=== PATIENT | female | born 1965 | race Caucasian/White ===

== ENCOUNTER 2022-04-24 18:31 | Inpatient (IN) | payer OTHER ==
[2022-04-24] MEDS ORDERED: SODIUM CHLORIDE 0.9% 1,000 ML IV STA ×3 (18:48→19:53)
[2022-04-24] MEDS ORDERED: methylPREDNISolone SOD SUCCI 125 MG/2 ML VIAL IV STA (18:48)
[2022-04-24] MEDS ORDERED: IPRATROPIUM-ALBUTEROL 3 ML NEB INHALATION STA ×2 (18:48→18:49)
[2022-04-24] MEDS ORDERED: LORazepam 2 MG/ML INJ IV STA (19:00)
[2022-04-24 19:12] LABS: Basophils # (A) 0.1 k/uL (0-0.2); Basophils % (A) 1 %; Eosinophils # (A) 0.1 k/uL (0-0.7); Eosinophils % (A) 1 %; HCT 45.4 % (34.0-46.0); HGB 15.3 gm/dL (11.4-16.0); Lymphocytes # (A) 1.4 k/uL (1.0-4.8); Lymphocytes % (A) 10 %; MCH 31.5 pg (25.0-35.0); MCHC 33.7 g/dL (31.0-37.0); MCV 93.5 fL (80.0-100.0); Monocytes # (A) 0.6 k/uL (0-1.0); Monocytes % (A) 4 %; Neutrophils # (A) 11.4 k/uL (1.3-7.7); Neutrophils % (A) 84 %; Platelet Count 299 k/uL (150-450); RBC 4.85 m/uL (3.80-5.40); RDW 12.8 % (11.5-15.5); WBC 13.6 k/uL (3.8-10.6)
[2022-04-24 19:16] LABS: VBG PH 7.25 (7.31-7.41)
[2022-04-24] MEDS: MAGNESIUM SULFATE-D5W PMX 1 GM in DEXTROSE/WATER 1 100ML.BAG IVPB SCH ×2 (19:26→20:53)
[2022-04-24 19:30] LABS: ALT 22 U/L (4-34); AST 34 U/L (14-36); African American GFR (CKD) >90 (>60 ml/min/1.73 sqM); Albumin 4.9 g/dL (3.5-5.0); Alkaline Phosphatase 94 U/L (38-126); Anion Gap 6 mmol/L; Blood Urea Nitrogen 11 mg/dL (7-17); Calcium 9.8 mg/dL (8.4-10.2); Carbon Dioxide 26 mmol/L (22-30); Chloride 102 mmol/L (98-107); Glucose 150 mg/dL (74-99); Magnesium 1.9 mg/dL (1.6-2.3); Non-African American GFR(CKD) >90 (>60 ml/min/1.73 sqM); Potassium 4.5 mmol/L (3.5-5.1); Sodium 134 mmol/L (137-145); Total Bilirubin 0.4 mg/dL (0.2-1.3); Total Protein 8.2 g/dL (6.3-8.2)
[2022-04-24 19:39] LABS: INR 0.9 (<1.2); Partial Thromboplastin Time 23.5 sec (22.0-30.0); Prothrombin Time 9.5 sec (9.0-12.0)
--- NOTE | 2022-04-24 19:52 | XR ---
EXAMINATION TYPE: XR chest 1V portable DATE OF EXAM: 04/24/2022 COMPARISON: 11/12/2014 HISTORY: Chest pain TECHNIQUE: FINDINGS: There is no heart failure nor confluent pneumonic infiltrate. There is pulmonary hyperinfla tion and flattening of the diaphragm. There are chest leads. Bony thorax is intact. IMPRESSION: There is COPD. No active cardiopulmonary disease. No change.
[2022-04-24] MEDS ORDERED: IPRATROPIUM-ALBUTEROL 3 ML NEB INHALATION PRN (19:56)
[2022-04-24] MEDS ORDERED: NALOXONE 0.4 MG/ML 1 ML VIAL IV PRN (20:02)
--- NOTE | 2022-04-24 20:03 | ED ---
General Adult HPI - General Chief complaint: Shortness of Breath Stated complaint: sob;chest pain Time Seen by Provider: 04/24/22 18:40 Source: patient, family, RN notes reviewed, old records reviewed Mode of arrival: wheelchair Limitations: no limitations - History of Present Illness Initial comments: Patient is a 57-year-old female who presents here with Department complaining of 3 days of worsening dyspnea. Has a history of COPD not on home oxygen. Does use inhalers at home. He is a tobacco user. Presents over concern for worsening shortness breath over the last 3 days. Today she was more weak as well. She presented to triage, and was found to be hypoxic and at this low 80%'s. She was rushed back to the trauma bay's for evaluation. Endorses chest tightness sensation, and is similar to a bad COPD exacerbation she had in the past. Denies any nausea, vomiting. Denies any known sick contacts. Endorses a nonproductive cough. Endorses the feeling that her tongue is dry. Denies fevers, sick contacts otherwise. Was vaccinated for COVID-19 but did not receive the most recent booster. Presents for further evaluation at this time for concern for her respiratory distress. Cough is relatively nonproductive. Patient also has a complaint of a one time episode of possible blood in her stool earlier today. He is not on blood thinners. Denies any lightheadedness. Is uncertain if this contributed to her current symptoms. No history of GI bleed. Never received a colonoscopy before. States it is bright red blood around brown stool. Does have a history of hemorrhoids. No recurrent episodes. - Related Data Home Medications Medication Instructions Recorded Confirmed No Known Home Medications 04/24/22 04/24/22 Allergies Allergy/AdvReac Type Severity Reaction Status Date / Time No Known Allergies Allergy Verified 04/24/22 19:56 Review of Systems ROS Statement: Those systems with pertinent positive or pertinent negative responses have been documented in the HPI. Review of Systems: CONST: Denies fever EYES: Denies blurry vision ENT: Denies nasal congestion C/V: Denies Chest pain RESP: Endorses shortness of breath GI: Denies abdominal pain : Denies dysuria SKIN: Denies rash. MSK: Denies joint pain. NEURO: Denies headache ROS Other: All systems not noted in ROS Statement are negative. Past Medical History Past Medical History: No Reported History Additional Past Medical History / Comment(s): STRESS INCONT OF URINE, MIGRAINES, History of Any Multi-Drug Resistant Organisms: None Reported Past Surgical History: No Surgical Hx Reported Additional Past Surgical History / Comment(s): ECTOPIC ,KIDNEY STONES REMOVED. Past Anesthesia/Blood Transfusion Reactions: No Reported Reaction Past Psychological History: Anxiety, Bipolar, Depression Past Alcohol Use History: Occasional Past Drug Use History: Marijuana - Past Family History Mother Family Medical History: Cancer Additional Family Medical History / Comment(s): LUNG CANCER Father Additional Family Medical History / Comment(s): AGE 78 [employer] [facility], General Exam - General Exam Comments Initial Comments: General: Appears in significant respiratory distress. HEAD: Normal with no signs of head trauma. EYES: PERRLA, EOMI, conjunctiva normal, no discharge. ENT: Hearing grossly intact, normal oropharynx. RESPIRATORY: Reduced breath sounds bilaterally with reduced amount of wheezing. Concern for acute COPD exacerbation. Increased work of breathing. Hypoxic on room air. C/V: Tachycardic with a regular rhythm. S1 and S2 auscultated. Peripheral pulses are 2+ and intact throughout. ABD: Abd is soft, nontender, nondistended.Rectal exam performed in the presence of a staff member. No gross blood. Nonbleeding hemorrhoid present. Light br own stool present. Good rectal tone. EXT: Normal range of motion, no obvious deformity SKIN: No rashes or lesions observed on exposed skin. NEURO: Alert and oriented x 4. Cranial nerves II-XII intact. No focal sensory or strength deficits. Limitations: no limitations Course Vital Signs 04/24/22 04/24/22 04/24/22 18:33 19:05 19:09 Temperature 98.8 F Pulse Rate 122 H 113 H Respiratory 19 26 H 26 H Rate Blood Pressure 185/103 O2 Sat by Pulse 81 L 99 Oximetry Fraction of Inspired Oxygen (FIO2) 04/24/22 04/24/22 04/24/22 19:15 19:18 19:26 Temperature Pulse Rate 122 H 115 H Respiratory 30 H 30 H Rate Blood Pressure 182/91 164/89 O2 Sat by Pulse 99 115 H Oximetry Fraction of 60 Inspired Oxygen (FIO2) 04/24/22 04/24/22 04/24/22 19:28 19:43 19:51 Temperature Pulse Rate 125 H Respiratory Rate Blood Pressure O2 Sat by Pulse Oximetry Fraction of 50 50 Inspired Oxygen (FIO2) 04/24/22 04/24/22 20:03 20:38 Temperature Pulse Rate 123 H 122 H Respiratory 25 H Rate Blood Pressure 171/96 O2 Sat by Pulse 99 Oximetry Fraction of Inspired Oxygen (FIO2) Medical Decision Making - Medical Decision Making Was pt. sent in by a medical professional or institution? @ -No Did you speak to anyone other than the patient for history? @ -Yes. Patient's who is able to detail worsening respiratory distress over the last 3 days. Did you review nursing and triage notes? @ -Yes. I agree. Were old charts reviewed? @ -Yes. Old EKG, prior admission Differential Diagnosis? @ -Differential Dyspnea: Coronary syndrome, arrhythmia, tamponade, asthma, COPD, pulmonary embolism, pneumonia, pneumothorax, pulmonary effusion, anaphylaxis, diabetic ketoacidosis, flailed chest, pulmonary contusion, diaphragmatic rupture, anemia, neuromuscular, this is not meant to be an all-inclusive list. EKG interpreted by me (3pts min.)? @ -Yes. See note. X-rays interpreted by me (1pt min.)? @ -Yes. Chest x-ray shows no acute cardiopulmonary process, infiltrate. CT interpreted by me (1pt min.)? @ -none U/S interpreted by me (1pt. min.)? @ -none What testing was considered but not performed? (CT, X-rays, U/S, labs)? Why? @None What meds were considered but not given? Why? @ -none Did you discuss the management of the patient with other professionals? @ -Dr. Simon, the admitting physician who was in agreement with the plan. We'll trend the troponin and follow up on this, as is likely elevated secondary to her COPD exacerbation and underlying infection. Did you reconcile home meds? @ -none Was smoking cessation discussed for >3mins.? @ -Yes Was critical care preformed (if so, how long)? @ -Yes. 35 minutes. See note. Were there social determinants of health that impacted care today? How? (Homelessness, low income, unemployed, alcoholism, drug addiction, transportation, low edu. Level, literacy, decrease access to med. care, prison, rehab)? @ -None Was there de-escalation of care discussed even if they declined? (Discuss DNR or withdrawal of care, Hospice)? @ -No What co-morbidities impacted this encounter? (DM, HTN, Smoking, COPD, CAD, Cancer, CVA, Hep., AIDS, mental health diagnosis, sleep apnea, morbid obesity)? @ -Yes, smoking, COPD Was patient admitted / discharged? @ -Based on the patient's presentation and physical exam, she presents hypoxic, tachycardic likely secondary to COPD exacerbation. She is tight breath sounds bilaterally. She was immediately placed in trauma bay 2 where I evaluated her. She was placed on BiPAP and given a dose of Ativan for anxiety. We will obtain cardiac pulmonary laboratory studies. She'll receive IV steroids as well as breathing treatments for her COPD exacerbation. We will also evaluate her for infection at this time. She was in agreement this plan. She'll be given a 1 L fluid bolus as she is dehydrated and likely secondary to insensible losses. She was in agreement this plan. Chest x-ray revealed no acute infiltrate. EKG showed no signs of acute ischemia. Laboratory studies were remarkable for leukocytosis of 13. Patient's venous blood gas does show that the patient has some CO2 retention likely secondary to the acute COPD exacerbation. Troponin is elevated to 0.115 which is likely related to her hypoxia as well as her dehydration at this time. We'll continue to trend. She was given an aspirin. Occult blood was obtained and was negative. Varus labs returned positive for RSV and COVID-19. She is influenza-negative. After the patient. At this time, her work of breathing is improved as is her heart rate. Patient is saturating well. We're titrating down the approximation requirements on the BiPAP machine. She states she still feels somewhat anxious on BiPAP but is doing well. Her symptoms are improving. We discussed her workup. I believe it is best admitted to the hospital at this time. She was in agreement this plan. Pulmonology was consulted. We will continue COPD treatment with IV steroids, DuoNeb's initially. However due to the COVID-19 positive diagnosis I did order her MDIs as well. We'll continue BiPAP at this time. She will be admitted to stepdown. I spoke with the admitting physician, cherelle Simon who accepted the patient. He was in agreement with trend in the troponin for now, as it is likely rate elevated secondary to her infectious process as well as hypoxia at home and dehydration.. DVT prophylaxis subcutaneous heparin was star drew. Undiagnosed new problem with uncertain prognosis? @ -Acute COPD exacerbation, acute RSV infection, acute COVID-19 infection. Acute elevated troponin. Drug Therapy requiring intensive monitoring for toxicity (Heparin, Nitro, Insulin, Cardizem)? @ -none Were any procedures done? @ -none Diagnosis/symptom? @ -Acute COPD exacerbation, acute RSV infection, acute COVID-19 infection. Acute elevated troponin. Dehydration Acute, or Chronic, or Acute on Chronic? @ -Acute Uncomplicated (without systemic symptoms) or Complicated (systemic symptoms)? @ -Complicated Side effects of treatment? @ -none Exacerbation, Progression, or Severe Exacerbation] @ -no Poses a threat to life or bodily function? @ -Yes if worsening respiratory distress, patient risk for significant morbidity and mortality. - Lab Data Result diagrams: 04/24/22 18:53 04/24/22 18:53 Lab Results 04/24/22 04/24/22 04/24/22 Range/Units 18:53 18:53 18:53 WBC 13.6 H (3.8-10.6) k/uL RBC 4.85 (3.80-5.40) m/uL Hgb 15.3 (11.4-16.0) gm/dL Hct 45.4 (34.0-46.0) % MCV 93.5 (80.0-100.0) fL MCH 31.5 (25.0-35.0) pg MCHC 33.7 (31.0-37.0) g/dL RDW 12.8 (11.5-15.5) % Plt Count 299 (150-450) k/uL MPV 8.0 Neutrophils % 84 % Lymphocytes % 10 % Monocytes % 4 % Eosinophils % 1 % Basophils % 1 % Neutrophils # 11.4 H (1.3-7.7) k/uL Lymphocytes # 1.4 (1.0-4.8) k/uL Monocytes # 0.6 (0-1.0) k/uL Eosinophils # 0.1 (0-0.7) k/uL Basophils # 0.1 (0-0.2) k/uL PT 9.5 (9.0-12.0) sec INR 0.9 (<1.2) APTT 23.5 (22.0-30.0) sec VBG pH (7.31-7.41) VBG pCO2 (37-51) mmHg VBG HCO3 (24-28) mmol/L Sodium 134 L (137-145) mmol/L Potassium 4.5 (3.5-5.1) mmol/L Chloride 102 (98-107) mmol/L Carbon Dioxide 26 (22-30) mmol/L Anion Gap 6 mmol/L BUN 11 (7-17) mg/dL Creatinine 0.64 (0.52-1.04) mg/dL Est GFR (CKD-EPI)AfAm >90 (>60 ml/min/1.73 sqM) Est GFR (CKD-EPI)NonAf >90 (>60 ml/min/1.73 sqM) Glucose 150 H (74-99) mg/dL Plasma Lactic Acid [place] (0.7-2.0) mmol/L Calcium 9.8 (8.4-10.2) mg/dL Magnesium 1.9 (1.6-2.3) mg/dL Total Bilirubin 0.4 (0.2-1.3) mg/dL AST 34 (14-36) U/L ALT 22 (4-34) U/L Alkaline Phosphatase 94 (38-126) U/L Troponin I (0.000-0.034) ng/mL NT-Pro-B Natriuret Pep pg/mL Total Protein 8.2 (6.3-8.2) g/dL Albumin 4.9 (3.5-5.0) g/dL Stool Occult Blood (Negative) Influenza Type A (PCR) (Not Detectd) Influenza Type B (PCR) (Not Detectd) RSV (PCR) (Not Detectd) SARS-CoV-2 (PCR) (Not Detectd) 04/24/22 04/24/22 04/24/22 Range/Units 18:53 18:53 18:53 WBC (3.8-10.6) k/uL RBC (3.80-5.40) m/uL Hgb (11.4-16.0) gm/dL Hct (34.0-46.0) % MCV (80.0-100.0) fL MCH (25.0-35.0) pg MCHC (31.0-37.0) g/dL RDW (11.5-15.5) % Plt Count (150-450) k/uL MPV Neutrophils % % Lymphocytes % % Monocytes % % Eosinophils % % Basophils % % Neutrophils # (1.3-7.7) k/uL Lymphocytes # (1.0-4.8) k/uL Monocytes # (0-1.0) k/uL Eosinophils # (0-0.7) k/uL Basophils # (0-0.2) k/uL PT (9.0-12.0) sec INR (<1.2) APTT (22.0-30.0) sec VBG pH (7.31-7.41) VBG pCO2 (37-51) mmHg VBG HCO3 (24-28) mmol/L Sodium (137-145) mmol/L Potassium (3.5-5.1) mmol/L Chloride (98-107) mmol/L Carbon Dioxide (22-30) mmol/L Anion Gap mmol/L BUN (7-17) mg/dL Creatinine (0.52-1.04) mg/dL Est GFR (CKD-EPI)AfAm (>60 ml/min/1.73 sqM) Est GFR (CKD-EPI)NonAf (>60 ml/min/1.73 sqM) Glucose (74-99) mg/dL Plasma Lactic Acid [place] 1.2 (0.7-2.0) mmol/L Calcium (8.4-10.2) mg/dL Magnesium (1.6-2.3) mg/dL Total Bilirubin (0.2-1.3) mg/dL AST (14-36) U/L ALT (4-34) U/L Alkaline Phosphatase (38-126) U/L Troponin I 0.115 H* (0.000-0.034) ng/mL NT-Pro-B Natriuret Pep 203 pg/mL Total Protein (6.3-8.2) g/dL Albumin (3.5-5.0) g/dL Stool Occult Blood (Negative) Influenza Type A (PCR) (Not Detectd) Influenza Type B (PCR) (Not Detectd) RSV (PCR) (Not Detectd) SARS-CoV-2 (PCR) (Not Detectd) 01/01/23 01/01/23 01/01/23 Range/Units 18:53 18:53 18:57 WBC (3.8-10.6) k/uL RBC (3.80-5.40) m/uL Hgb (11.4-16.0) gm/dL Hct (34.0-46.0) % MCV (80.0-100.0) fL MCH (25.0-35.0) pg MCHC (31.0-37.0) g/dL RDW (11.5-15.5) % Plt Count (150-450) k/uL MPV Neutrophils % % Lymphocytes % % Monocytes % % Eosinophils % % Basophils % % Neutrophils # (1.3-7.7) k/uL Lymphocytes # (1.0-4.8) k/uL Monocytes # (0-1.0) k/uL Eosinophils # (0-0.7) k/uL Basophils # (0-0.2) k/uL PT (9.0-12.0) sec INR (<1.2) APTT (22.0-30.0) sec VBG pH 7.25 L (7.31-7.41) VBG pCO2 64 H (37-51) mmHg VBG HCO3 27 (24-28) mmol/L Sodium (137-145) mmol/L Potassium (3.5-5.1) mmol/L Chloride (98-107) mmol/L Carbon Dioxide (22-30) mmol/L Anion Gap mmol/L BUN (7-17) mg/dL Creatinine (0.52-1.04) mg/dL Est GFR (CKD-EPI)AfAm (>60 ml/min/1.73 sqM) Est GFR (CKD-EPI)NonAf (>60 ml/min/1.73 sqM) Glucose (74-99) mg/dL Plasma Lactic Acid [place] (0.7-2.0) mmol/L Calcium (8.4-10.2) mg/dL Magnesium (1.6-2.3) mg/dL Total Bilirubin (0.2-1.3) mg/dL AST (14-36) U/L ALT (4-34) U/L Alkaline Phosphatase (38-126) U/L Troponin I (0.000-0.034) ng/mL NT-Pro-B Natriuret Pep pg/mL Total Protein (6.3-8.2) g/dL Albumin (3.5-5.0) g/dL Stool Occult Blood Negative (Negative) Influenza Type A (PCR) Not Detected (Not Detectd) Influenza Type B (PCR) Not Detected (Not Detectd) RSV (PCR) Detected A (Not Detectd) SARS-CoV-2 (PCR) Detected A (Not Detectd) - EKG Data -: EKG Interpreted by Me EKG Comments: 12-lead Electrocardiogram Interpretation Note EKG was reviewed and interpreted by myself. 12-lead ECG performed at 1850 is interpreted by me as revealing sinus tachycardia at a rate of 113 beats per minute. Rampart is normal. AR interval is 144 ms, QRS duration is 88 ms, QTc is 449 ms.. There were no ST or T wave abnormalities to suggest myocardial ischemia or injury. R wave progression across the precordium was satisfactory. By my interpretation this EKG is non-diagnostic for acute ischemia. Compared with EKG from October 2014, no significant change except for the tachycardia which is likely secondary to her hypoxia and dehydration. Disposition Clinical Impression: Respiratory failure with hypoxia, COPD exacerbation, Elevated troponin, Dehydration, COVID-19 virus infection, RSV infection Disposition: ADMITTED IP TO THIS HOSP Condition: Serious Time of Disposition: 20:02
[2022-04-24] MEDS ORDERED: ALBUTEROL HFA INHALER INHALATION PRN (20:14)
[2022-04-24] MEDS ORDERED: ASPIRIN 81 MG PO STA (20:51)
[2022-04-24] MEDS: methylPREDNISolone SOD SUCCI 40 MG/ML 1 ML VIAL IV SCH (20:53)
[2022-04-24] MEDS ORDERED: ASPIRIN-ACET-CAFF 250-250-65MG 1 EACH TAB PO STA (21:53)
[2022-04-24 23:01] LABS: Appearance,Urine Clear (Clear); Bilirubin,Urine Negative (Negative); Blood,Urine Negative (Negative); Color,Urine Colorless; Glucose,Urine (UA) Trace (Negative); Ketones,Urine Negative (Negative); Leukocyte Esterase,Urine Negative (Negative); Nitrite,Urine Negative (Negative); Protein,Urine Negative (Negative); Specific Gravity,Urine 1.002 (1.001-1.035); Urobilinogen,Urine <2.0 mg/dL (<2.0)
[2022-04-24] MEDS ORDERED: HEPARIN SODIUM 1,000 UN/ML (10ML VL) IV PRN (23:41)
[2022-04-25] MEDS ORDERED: HEPARIN SODIUM,PORCINE/PF 5,000 UNIT/0.5 ML SYRINGE SQ SCH
[2022-04-25 00:15] LABS: Basophils % (A) 0 %; Eosinophils # (A) 0.1 k/uL (0-0.7); Eosinophils % (A) 1 %; HCT 40.5 % (34.0-46.0); HGB 13.6 gm/dL (11.4-16.0); Lymphocytes # (A) 0.4 k/uL (1.0-4.8); Lymphocytes % (A) 4 %; MCH 31.4 pg (25.0-35.0); MCHC 33.5 g/dL (31.0-37.0); MCV 93.7 fL (80.0-100.0); Monocytes # (A) 0.1 k/uL (0-1.0); Monocytes % (A) 1 %; Neutrophils # (A) 9.3 k/uL (1.3-7.7); Neutrophils % (A) 94 %; Platelet Count 229 k/uL (150-450); RBC 4.32 m/uL (3.80-5.40); RDW 12.8 % (11.5-15.5); WBC 9.9 k/uL (3.8-10.6)
[2022-04-25] MEDS: HEPARIN SOD,PORK IN 0.45% NACL 25,000 UNIT in 0.45% NACL 1 250ML.BAG IV SCH (00:20)
[2022-04-25 00:34] LABS: INR 0.9 (<1.2); Partial Thromboplastin Time 20.8 sec (22.0-30.0); Prothrombin Time 9.5 sec (9.0-12.0)
--- NOTE | 2022-04-25 02:33 | P.HPIM ---
History of Present Illness H&P Date: 04/24/22 The patient is a 57-year-old female with a PMH of COPD and tobacco abuse who presents to the emergency room with complaints of shortness of breath and cough. The patient reports that her symptoms started roughly 2 days ago with gradually worsening shortness of breath, cough productive of white and green phlegm, palpitations, and occasional chest pressure. She reports that her symptoms are worse than her prior episodes of COPD exacerbations. Reports feeling significantly better after arrival at the emergency room and stated that she has not had any further chest discomfort. Denied experiencing fever or chills. Denied dizziness, nausea, vomiting, abdominal pain, diarrhea. Upon arrival in the emergency room, the patient was hypoxic at SpO2 81% on room air, pulse 122, BP 185/103, respiratory rate 26, and temp 98.8F. Chest x-ray was consistent with COPD with EKG showing sinus tachycardia at 113 bpm. Laboratory evaluation was remarkable for troponin of 0.115, kim virus PCR an RSV positive, glucose 150, pH on VBG 7.25, pCO2 64, WBC count 13.6, and proBNP 203. The case was discussed in detail with the ED physician. Review of systems: Pertinent positives and negatives as discussed in HPI, a complete review of systems was performed and all other systems are negative. Physical examination: General: non toxic, no distress, appears older than stated age, normal weight Derm: no unusual rashes/lesions, warm Head: atraumatic, normocephalic, symmetric Eyes: EOMI, no lid lag, anicteric sclera, pupils equal round reactive to light ENT: Nose and ears atraumatic Neck: No cervical lymphadenopathy, trachea midline, supple Mouth: no lip lesion, mucus membranes moist Cardiovascular: S1S2 reg, no murmur, positive dorsalis pedis pulse bilateral, no edema Lungs: Expiratory wheezing with diffuse coarse breath sounds, no accessory muscle use Abdominal: soft, nontender to palpation, no guarding Ext: muscle strength 5 out of 5 in all 4 extremities grossly, no gross muscle atrophy, no contractures, Neuro: CN II-XI grossly intact, no gross focal neuro deficits Psych: Alert, oriented, appropriate affect Assessment/plan Acute hypercapnic and hypoxic respiratory failure secondary to acute COPD exacerbation with COVID-19 and RSV infections -Continue with Solu-Medrol -DuoNeb around the clock and as needed -Supplemental oxygen as needed -Pulmonary consulted Non-ST elevation CT -Heparin infusion initiated -Continue aspirin, statin -Cardiology consult -Trend troponin -Cardiac monitoring DVT prophylaxis -Heparin infusion The patient is admitted with an anticipated greater than 2 midnight stay for evaluation of COPD CODE STATUS: Full Code Discussed with: Patient, Anticipated discharge date: 2-[address]: Home Past Medical History Past Medical History: No Reported History Additional Past Medical History / Comment(s): STRESS INCONT OF URINE, MIGRAINES, History of Any Multi-Drug Resistant Organisms: None Reported Past Surgical History: No Surgical Hx Reported Additional Past Surgical History / Comment(s): ECTOPIC ,KIDNEY STONES REMOVED. Past Anesthesia/Blood Transfusion Reactions: No Reported Reaction Past Psychological History: Anxiety, Bipolar, Depression Past Alcohol Use History: Occasional Past Drug Use History: Marijuana - Past Family History Mother Family Medical History: Cancer Additional Family Medical History / Comment(s): LUNG CANCER Father Additional Family Medical History / Comment(s): AGE 78 [employer] [facility], Medications and Allergies Home Medications Medication Instructions Recorded Confirmed Type No Known Home Medications 04/24/22 04/24/22 History Allergies Allergy/AdvReac Type Severity Reaction Status Date / Time No Known Allergies Allergy Verified 04/24/22 19:56 Physical Exam Vitals: Vital Signs Temp Pulse Resp BP Pulse Ox FiO2 04/24/22 22:42 113 H 24 128/73 96 04/24/22 21:30 105 H 23 136/84 98 04/24/22 20:50 129 H 04/24/22 20:38 122 H 25 H 171/96 99 04/24/22 20:03 123 H 04/24/22 19:51 125 H 04/24/22 19:43 50 04/24/22 19:28 50 04/24/22 19:26 115 H 30 H 164/89 115 H 04/24/22 19:18 60 04/24/22 19:15 122 H 30 H 182/91 99 04/24/22 19:09 26 H 04/24/22 19:05 113 H 26 H 99 04/24/22 18:33 98.8 F 122 H 19 185/103 81 L Intake and Output 04/24/22 04/24/22 04/25/22 14:59 22:59 06:59 Other: Weight 58.967 kg Results CBC & Chem 7: 04/24/22 23:59 04/24/22 18:53 Labs: Abnormal Lab Results - Last 24 Hours (Table) 04/24/22 04/24/22 04/24/22 Range/Units 18:53 18:53 18:53 WBC 13.6 H (3.8-10.6) k/uL Neutrophils # 11.4 H (1.3-7.7) k/uL VBG pH (7.31-7.41) VBG pCO2 (37-51) mmHg Sodium 134 L (137-145) mmol/L Glucose 150 H (74-99) mg/dL Troponin I 0.115 H* (0.000-0.034) ng/mL Urine Glucose (UA) (Negative) RSV (PCR) (Not Detectd) SARS-CoV-2 (PCR) (Not Detectd) 04/24/22 04/24/22 04/24/22 Range/Units 18:53 18:53 21:33 WBC (3.8-10.6) k/uL Neutrophils # (1.3-7.7) k/uL VBG pH 7.25 L (7.31-7.41) VBG pCO2 64 H (37-51) mmHg Sodium (137-145) mmol/L Glucose (74-99) mg/dL Troponin I 0.187 H* (0.000-0.034) ng/mL Urine Glucose (UA) (Negative) RSV (PCR) Detected A (Not Detectd) SARS-CoV-2 (PCR) Detected A (Not Detectd) 04/24/22 Range/Units 22:41 WBC (3.8-10.6) k/uL Neutrophils # (1.3-7.7) k/uL VBG pH (7.31-7.41) VBG pCO2 (37-51) mmHg Sodium (137-145) mmol/L Glucose (74-99) mg/dL Troponin I (0.000-0.034) ng/mL Urine Glucose (UA) Trace H (Negative) RSV (PCR) (Not Detectd) SARS-CoV-2 (PCR) (Not Detectd)
[2022-04-25] MEDS ORDERED: IPRATROPIUM-ALBUTEROL 3 ML NEB INHALATION PRN (02:35)
[2022-04-25] MEDS: ATORVASTATIN 80 MG TAB PO SCH ×2 (02:37→21:19)
[2022-04-25 07:13] LABS: INR 0.9 (<1.2); Partial Thromboplastin Time 56.3 sec (22.0-30.0); Prothrombin Time 9.8 sec (9.0-12.0)
[2022-04-25 07:14] LABS: Basophils % (A) 0 %; Eosinophils % (A) 1 %; HCT 38.3 % (34.0-46.0); HGB 12.9 gm/dL (11.4-16.0); Lymphocytes # (A) 0.7 k/uL (1.0-4.8); Lymphocytes % (A) 10 %; MCH 31.5 pg (25.0-35.0); MCHC 33.7 g/dL (31.0-37.0); MCV 93.3 fL (80.0-100.0); Mean Platelet Volume 8.1; Monocytes # (A) 0.2 k/uL (0-1.0); Monocytes % (A) 3 %; Neutrophils # (A) 5.8 k/uL (1.3-7.7); Neutrophils % (A) 85 %; Platelet Count 242 k/uL (150-450); RBC 4.11 m/uL (3.80-5.40); WBC 6.8 k/uL (3.8-10.6)
[2022-04-25 07:23] LABS: African American GFR (CKD) >90 (>60 ml/min/1.73 sqM); Anion Gap 5 mmol/L; Blood Urea Nitrogen 8 mg/dL (7-17); Calcium 8.7 mg/dL (8.4-10.2); Carbon Dioxide 23 mmol/L (22-30); Chloride 109 mmol/L (98-107); Glucose 139 mg/dL (74-99); Non-African American GFR(CKD) >90 (>60 ml/min/1.73 sqM); Potassium 4.7 mmol/L (3.5-5.1); Sodium 137 mmol/L (137-145)
[2022-04-25] MEDS ORDERED: IPRATROPIUM-ALBUTEROL 3 ML NEB INHALATION SCH (08:00)
[2022-04-25] MEDS: ALBUTEROL HFA INHALER INHALATION SCH ×4 (08:40→20:21)
[2022-04-25] MEDS: methylPREDNISolone SOD SUCCI 40 MG/ML 1 ML VIAL IV SCH (09:01)
--- NOTE | 2022-04-25 09:34 | P.CRDCN ---
History of Present Illness Consult date: 04/25/22 Chief complaint: Shortness of breath History of present illness: The patient is a 57-year-old female patient with a past medical history signific ant for smoking where she smoked 2 packs of cigarettes a day as well as history of COPD presented to the hospital complaining of increasing shortness of breath. For the last few days she has been experiencing shortness of breath associated with cough not productive for any sputum. She was experiencing symptoms of fever and chills. No abdominal pain and no nausea or vomiting or diarrhea. No anginal chest pain or chest discomfort. She decided to come where she was found to be hypoxic with oxygen saturation in the 80s. She was started on oxygen. She was diagnosed with COPD exacerbation. We consulted to see the patient mainly because of abnormal cardiac enzymes and abnormal troponin. The troponin appeared to be flat across the board. The EKG showed sinus tachycardia with no significant ischemic ST or T-wave abnormalities. Please note that the patient was tested positive for COVID infection.. The rest of the blood work overall clinically unremarkable. No history of coronary artery disease or congestive heart failure or cardiac arrhythmia in the patient doesn't follow with any c ardiologist regularly. On examination the patient does have severe bilateral expiratory wheezing and diminished breathing sounds. She has regular rhythm and she is in sinus tachycardia. No lower extremities edema noted. Past Medical History Past Medical History: No Reported History Additional Past Medical History / Comment(s): STRESS INCONT OF URINE, MIGRAINES, History of Any Multi-Drug Resistant Organisms: None Reported Past Surgical History: No Surgical Hx Reported Additional Past Surgical History / Comment(s): ECTOPIC ,KIDNEY STONES REMOVED. Past Anesthesia/Blood Transfusion Reactions: No Reported Reaction Past Psychological History: Anxiety, Bipolar, Depression Past Alcohol Use History: Occasional Past Drug Use History: Marijuana - Past Family History Mother Family Medical History: Cancer Additional Family Medical History / Comment(s): LUNG CANCER Father Additional Family Medical History / Comment(s): AGE 78 [facility] GOOD HEALTH, Medications and Allergies Home Medications Medication Instructions Recorded Confirmed Type No Known Home Medications 04/24/22 04/24/22 History Allergies Allergy/AdvReac Type Severity Reaction Status Date / Time No Known Allergies Allergy Verified 04/24/22 19:56 Physical Exam Vitals: Vital Signs Temp Pulse Resp BP Pulse Ox FiO2 04/25/22 08:57 98.0 F 92 18 125/79 94 L 04/25/22 08:41 97 04/25/22 06:31 98 F 92 18 122/70 97 04/25/22 06:00 86 16 123/70 98 04/25/22 04:39 98.6 F 89 18 122/70 99 04/25/22 04:37 87 18 114/71 97 04/25/22 03:03 80 18 92 L 04/25/22 02:30 85 18 105/67 04/25/22 01:13 86 16 123/84 92 L 04/25/22 00:26 89 20 116/70 97 04/24/22 22:42 113 H 24 128/73 96 04/24/22 21:30 105 H 23 136/84 98 04/24/22 20:50 129 H 04/24/22 20:38 122 H 25 H 171/96 99 04/24/22 20:03 123 H 04/24/22 19:51 125 H 04/24/22 19:43 50 04/24/22 19:28 50 04/24/22 19:26 115 H 30 H 164/89 115 H 04/24/22 19:18 60 04/24/22 19:15 122 H 30 H 182/91 99 04/24/22 19:09 26 H 04/24/22 19:05 113 H 26 H 99 04/24/22 18:33 98.8 F 122 H 19 185/103 81 L Intake and Output 04/24/22 04/25/22 04/25/22 22:59 06:59 14:59 Other: Weight 58.967 kg - Constitutional General appearance: no acute distress - Respiratory Respiratory: bilateral: diminished, wheezing - Cardiovascular Rhythm: regular Results 04/25/22 06:51 04/25/22 06:51 Cardiac Enzymes 04/24/22 04/24/22 04/24/22 Range/Units 18:53 18:53 21:33 AST 34 (14-36) U/L Troponin I 0.115 H* 0.187 H* (0.000-0.034) ng/mL 04/24/22 Range/Units 23:59 AST (14-36) U/L Troponin I 0.207 H* (0.000-0.034) ng/mL Coagulation 04/24/22 04/24/22 04/25/22 Range/Units 18:53 23:59 06:51 PT 9.5 9.5 9.8 (9.0-12.0) sec APTT 23.5 20.8 L 56.3 H (22.0-30.0) sec CBC 04/24/22 04/24/22 04/25/22 Range/Units 18:53 23:59 06:51 WBC 13.6 H 9.9 6.8 (3.8-10.6) k/uL RBC 4.85 4.32 4.11 (3.80-5.40) m/uL Hgb 15.3 13.6 12.9 (11.4-16.0) gm/dL Hct 45.4 40.5 38.3 (34.0-46.0) % Plt Count 299 229 242 (150-450) k/uL Comprehensive Metabolic Panel 04/24/22 04/25/22 Range/Units 18:53 06:51 Sodium 134 L 137 (137-145) mmol/L Potassium 4.5 4.7 (3.5-5.1) mmol/L Chloride 102 109 H (98-107) mmol/L Carbon Dioxide 26 23 (22-30) mmol/L BUN 11 8 (7-17) mg/dL Creatinine 0.64 0.49 L (0.52-1.04) mg/dL Glucose 150 H 139 H (74-99) mg/dL Calcium 9.8 8.7 (8.4-10.2) mg/dL AST 34 (14-36) U/L ALT 22 (4-34) U/L Alkaline Phosphatase 94 (38-126) U/L Total Protein 8.2 (6.3-8.2) g/dL Albumin 4.9 (3.5-5.0) g/dL Current Medications Generic Name Dose Route Start Last Admin Trade Name Freq PRN Reason Stop Dose Admin Albuterol Sulfate 2 puff 04/25/22 08:00 04/25/22 08:40 Albuterol Hfa Inhaler INHALATION 2 puff RT-QID [place] Administration Albuterol Sulfate 2 puff 04/24/22 22:28 Albuterol Hfa Inhaler INHALATION Q2HR PRN Shortness Of Breath Or Wheezing Atorvastatin Calcium 80 mg 04/25/22 02:32 04/25/22 02:37 Atorvastatin 80 Mg Tab PO Not Given HS [place] Heparin Sodium (Porcine) 0 unit 04/24/22 23:41 Heparin Sodium 1,000 Un/Ml (10ml Vl) IV PER PROTOCOL PRN Low PTT Protocol Heparin Sodium/Sodium Chloride 250 mls @ 7.076 mls/hr 04/24/22 23:45 04/25/22 00:20 25,000 unit/ Sodium Chloride IV 12 units/kg/hr .Q24H [place] 7.076 mls/hr Administration Protocol 12 UNITS/KG/HR Methylprednisolone Sodium Succinate 40 mg 04/24/22 21:00 04/25/22 09:01 Methylprednisolone Sod Succi 40 Mg/Ml 1 Ml Vial IV 40 mg Q12HR [place] Administration Naloxone HCl 0.2 mg 04/24/22 20:02 Naloxone 0.4 Mg/Ml 1 Ml Vial IV Q2M PRN Opioid Reversal Intake and Output 04/24/22 04/25/22 04/25/22 22:59 06:59 14:59 Other: Weight 58.967 kg 04/25/22 06:51 04/25/22 06:51 Assessment and Plan Assessment: Assessment COVID-19 infection COPD exacerbation Possible underlying pneumonia related to COVID-19 Acute hypoxic respiratory failure Evidence of myocardial injury was no evidence of ischemia Sinus tachycardia Significant history of smoking Plan Consider conservative medical approach at this point in the light of absence of anginal chest pain and ischemic ST changes on the EKG I believe that the abnormal troponin is likely related to hypoxemia and sinus tachycardia. Severe CAD to be ruled out down the line Start the patient on aspirin Start the patient on beta jose with metoprolol Continue heparin IV for additional 24 hours An echocardiogram for further risk stratification and assess for wall motion abnormalities Follow-up with the patient
[2022-04-25] MEDS: methylPREDNISolone SOD SUCCI 125 MG/2 ML VIAL IV SCH ×3 (10:10→21:19)
[2022-04-25] MEDS: NICOTINE 21MG/24HR PATCH TRANSDERM SCH (10:11)
[2022-04-25] MEDS ORDERED: REMDESIVIR 200 MG in SODIUM CHLORIDE 0.9% 250 ML IVPB ONE (11:00)
[2022-04-25] MEDS ORDERED: ACETAMINOPHEN TAB 325 MG TAB PO PRN (12:38)
--- NOTE | 2022-04-25 14:01 | P.CNPUL ---
History of Present Illness Consult date: 04/25/22 Requesting physician: Etienne Simon Reason for consult: dyspnea, cough, COPD, hypoxemia Chief complaint: Shortness of breath, cough, wheezing. History of present illness: Pulmonary consult dated 04/25/2022. 57-year-old female who presented to the emergency department on April 24, complaining of shortness of breath. The patient hasn't been feeling well for about 3 days prior to admission. The patient does have a history of underlying COPD, although she's never seen a lung doctor, or had pulmonary function test. She's been smoking for more than 40 years, at one to 2 packs a day according to her . The patient came in with shortness of breath, cough, wheezing, and chest tightness. She was coughing a small amount of phlegm up. It was mostly white. She also had fever, and body aches. The patient was evaluated in emergency room, and did test positive for both respiratory syncytial virus, and coronavirus. In addition, she had elevated troponins, and was started on IV heparin. She has no other significant past medical history, does not see a doctor on a regular basis. Currently, she is on 5 L nasal cannula. She is receiving IV heparin. She was previously on BiPAP, with settings of 10/5 and 50%. In the past, she did see Dr. Mica Michelle. White count 6.8, hemog lobin 12.9, hematocrit 38.3, and platelet count was normal. PTT was 56.3. Sodium 137, potassium 4.7, chlorides 109, CO2 23, BUN 8, and creatinine 0.49. Troponins were 0.115, 0.187, and 0.207. Urine was negative. The patient did test positive for both RSV and coronavirus. The patient's chest x-ray was consistent with COPD. She had hyperlucent lung carrasco, as well as air trapping, flat diaphragms, and a vertically hanging hard. Review of Systems REVIEW OF SYSTEMS: CONSTITUTIONAL: Fatigue and weakness. NEUROLOGIC: [ Negative.] HEENT: [ Negative.] CARDIAC: [Negative.] PULMONARY: Shortness of breath, cough, wheezing, and occasional phlegm production. GI: [Negative.] : [Negative.] RHEUMATOLOGIC: Muscle aches. IMMUNOLOGIC: [ Negative.] ENDOCRINE: [Negative. ] DERMATOLOGIC: [Negative.] Past Medical History Past Medical History: No Reported History Additional Past Medical History / Comment(s): STRESS INCONT OF URINE, MIGRAINES, History of Any Multi-Drug Resistant Organisms: None Reported Past Surgical History: No Surgical Hx Reported Additional Past Surgical History / Comment(s): ECTOPIC ,KIDNEY STONES REMOVED. Past Anesthesia/Blood Transfusion Reactions: No Reported Reaction Past Psychological History: Anxiety, Bipolar, Depression Past Alcohol Use History: Occasional Past Drug Use History: Marijuana - Past Family History Mother Family Medical History: Cancer Additional Family Medical History / Comment(s): LUNG CANCER Father Additional Family Medical History / Comment(s): AGE 78 [facility]ALTH, Medications and Allergies Home Medications Medication Instructions Recorded Confirmed Type No Known Home Medications 04/24/22 04/24/22 History Allergies Allergy/AdvReac Type Severity Reaction Status Date / Time No Known Allergies Allergy Verified 04/24/22 19:56 Physical Exam Osteopathic Statement: *. No significant issues noted on an osteopathic structural exam other than those noted in the History and Physical/Consult. Vitals: Vital Signs Temp Pulse Resp BP Pulse Ox FiO2 04/25/22 12:00 98.3 F 103 H 20 136/96 94 L 04/25/22 10:14 104 H 18 130/74 95 04/25/22 08:57 98.0 F 92 18 125/79 94 L 04/25/22 08:41 97 04/25/22 06:31 98 F 92 18 122/70 97 04/25/22 06:00 86 16 123/70 98 04/25/22 04:39 98.6 F 89 18 122/70 99 04/25/22 04:37 87 18 114/71 97 04/25/22 03:03 80 18 92 L 04/25/22 02:30 85 18 105/67 04/25/22 01:13 86 16 123/84 92 L 04/25/22 00:26 89 20 116/70 97 04/24/22 22:42 113 H 24 128/73 96 04/24/22 21:30 105 H 23 136/84 98 04/24/22 20:50 129 H 04/24/22 20:38 122 H 25 H 171/96 99 04/24/22 20:03 123 H 04/24/22 19:51 125 H 04/24/22 19:43 50 04/24/22 19:28 50 04/24/22 19:26 115 H 30 H 164/89 115 H 04/24/22 19:18 60 04/24/22 19:15 122 H 30 H 182/91 99 04/24/22 19:09 26 H 04/24/22 19:05 113 H 26 H 99 04/24/22 18:33 98.8 F 122 H 19 185/103 81 L Intake and Output 04/24/22 04/25/22 04/25/22 22:59 06:59 14:59 Other: Weight 58.967 kg No acute distress, oriented 3. No audible wheezing, use of accessory muscles, or conversational dyspnea. The patient is currently on 5 L of oxygen. HEENT examination is grossly unremarkable. Neck supple. Full range of motion. No adenopathy thyromegaly or neck vein distention. Cardiovascular examination reveals regular rhythm rate. S1-S2 normal. No S3 or S4. No discernible murmur noted. Heart rate 103 bpm. Heart sounds are distant. Lungs reveal inspiratory and expiratory wheezes and rhonchi. No crackles. Breath sounds equal bilaterally but diminished throughout. Slight prolongation noted. Saturations are 94%. Abdomen soft bowel sounds are heard. No masses or tenderness. Extremities are intact. No cyanosis clubbing or edema. Skin is without rash or lesion. Neurologic examination is brief but nonfocal. Results - Laboratory Findings CBC and BMP: 04/25/22 06:51 04/25/22 06:51 PT/INR, D-dimer PT 9.8 sec (9.0-12.0) 04/25/22 06:51 INR 0.9 (<1.2) 04/25/22 06:51 Abnormal lab findings: Abnormal Labs 04/24/22 04/24/22 04/24/22 18:53 18:53 18:53 WBC 13.6 H Neutrophils # 11.4 H Lymphocytes # APTT VBG pH VBG pCO2 Sodium 134 L Chloride Creatinine Glucose 150 H Troponin I 0.115 H* Urine Glucose (UA) RSV (PCR) SARS-CoV-2 (PCR) 04/24/22 04/24/22 04/24/22 18:53 18:53 21:33 WBC Neutrophils # Lymphocytes # APTT VBG pH 7.25 L VBG pCO2 64 H Sodium Chloride Creatinine Glucose Troponin I 0.187 H* Urine Glucose (UA) RSV (PCR) Detected A SARS-CoV-2 (PCR) Detected A 04/24/22 04/24/22 04/24/22 22:41 23:59 23:59 WBC Neutrophils # 9.3 H Lymphocytes # 0.4 L APTT VBG pH VBG pCO2 Sodium Chloride Creatinine Glucose Troponin I 0.207 H* Urine Glucose (UA) Trace H RSV (PCR) SARS-CoV-2 (PCR) 04/24/22 04/25/22 04/25/22 23:59 06:51 06:51 WBC Neutrophils # Lymphocytes # 0.7 L APTT 20.8 L VBG pH VBG pCO2 Sodium Chloride 109 H Creatinine 0.49 L Glucose 139 H Troponin I Urine Glucose (UA) RSV (PCR) SARS-CoV-2 (PCR) 04/25/22 06:51 WBC Neutrophils # Lymphocytes # APTT 56.3 H VBG pH VBG pCO2 Sodium Chloride Creatinine Glucose Troponin I Urine Glucose (UA) RSV (PCR) SARS-CoV-2 (PCR) - Diagnostic Findings Chest x-ray: image reviewed Assessment and Plan Assessment: Acute hypoxemic respiratory failure, secondary to COPD exacerbation, treated both by respiratory syncytial virus, and coronavirus. No evidence of coronavirus associated pneumonia. Ongoing tobacco use with nicotine addiction. History of migraine cephalgia. Stress urinary incontinence. History of kidney stones. History of anxiety/depression. History of bipolar disorder. Plan: Plan dated 04/25/2022. The patient is seen in room 3, the emergency room. The patient is given REM, corticosteroids, albuterol inhaler, Symbicort inhaler, and a nicotine patch. Overall prognosis remains guarded. We will continue to follow the patient and make recommendations along the way. We counseled the patient about the importance of smoking cessation. In addition, after discharge, the patient should follow-up in our office, for complete pulmonary function testing. I suspect that she has pretty significant emphysema. Time with Patient: Greater than 30
--- NOTE | 2022-04-25 16:30 | P.PN ---
Subjective Progress Note Date: 04/25/22 Hospital course: Patient is a 57-year-old female with a PMH of COPD and tobacco abuse who presents to the emergency room with complaints of shortness of breath and cough. The patient reports that her symptoms started roughly 2 days ago with gradually worsening shortness of breath, cough productive of white and green phlegm, palpitations, and occasional chest pressure. She reported that her symptoms were worse than her prior episodes of COPD exacerbations. Upon arrival in the emergency department on 04/24/22, the patient was found to be hypoxic at SpO2 81% on room air, pulse 122, BP 185/103, respiratory rate 26, and temp 98.8F. Chest x-ray was consistent with COPD with EKG showing sinus tachycardia at 113 bpm. Laboratory evaluation was remarkable for troponin of 0.115, kim virus PCR an RSV positive, glucose 150, pH on VBG 7.25, pCO2 64, WBC count 13.6, and proBNP 203. The case was discussed in detail with the ED physician and patient was admitted under our services with consultation to pulmonology and cardiology at this time. 04/25/22: Patient seen and fully evaluated at the bedside. O2 needs slightly decreased patient on 4 L O2 via nasal cannula maintaining SpO2 of 94%. Morning labs completed and reviewed. CBC and BMP continue to show no significant abnorm alities. Troponin was trended overnight continuing to elevate from 0.115, 0.187 and 0.207. Urinalysis was obtained negative for blood or infection. Pro- calcitonin was negative at 0.08. Discussed with patient the recommendations of starting Remdesivir and she discussed with and would like to begin this medication. We will discuss with steam fitter supervisor to obtain an order, as restrictions are placed on this medication and can only be ordered by junior media buyer or infectious disease specialist at this time. Cardiology evaluating and recommending patient to continue heparin infusion for an additional 24 hours. Patient currently reports continued shortness of breath but denies having any dizziness, lightheadedness, chest pain, palpitations, or experiencing any numbness/tingling/weakness in her extremities. Physical exam: Vital signs reviewed and stable with blood pressure 125/79, heart rate 92, respiratory rate of 24, and SpO2 of 94% on 4 L.. General: Nontoxic, no distress and appears stated age. Derm: Skin warm and dry, normal coloration for ethnicity. Head: Atraumatic, normocephalic and symmetric. Eyes: EOMs intact, no lid lag, and anicteric sclera Mouth: no lip lesions, mucus membranes moist Cardiovascular: regular rate and rhythm with normal S1S2, systolic murmur, positive posterior tibial pulses bilaterally, and cap refill < 2 seconds. Lungs: Respirations even, regular, and unlabored on 4 L O2 via nasal cannula. Lungs with diffuse scattered rhonchi throughout expiratory wheezes throughout all lung carrasco. Abdominal: soft, nontender to palpation, no guarding, no appreciable organomegaly Ext: ROM intact. No gross muscle atrophy, no edema, no contractures Neuro: Speech clear, face symmetrical and CN II-XII grossly intact with no noted focal neuro deficits Psych: Alert and oriented to person, place, time, and situation. Appropriate and pleasant affect. Assessment and Plan of Care: Acute hypercapnic and hypoxic respiratory failure secondary to acute COPD exacerbation with COVID-19 and RSV infections COPD with acute exacerbation secondary to above COVID-19 pneumonia RSV infection Nicotine dependence -Continue with Solu-Medrol -Ventolin inhaler scheduled 4 times daily and as needed for wheezing/shortness of breath. -Patient to continue with Symbicort -Supplemental oxygen to continue as needed and recommend titrating down as pat ient tolerates. -Patient to receive Remdesivir dose 1/5 today. -Nicotine patch provided and patient was counseled on smoking cessation. -Pulmonary following, appreciate further recommendations. Non-ST elevation NM -Heparin infusion to continue at this time -Patient to continue aspirin, atorvastatin, and metoprolol. -Cardiology following recommending conservative medical approach in continuation of heparin infusion for an additional 24 hours. -Echocardiogram to be completed -Patient to remain on telemetry monitoring. Hypertensive urgency -Resolved blood pressure is stable at this time. Hypertensive urgency believed to be secondary to acute hypercapnic and hypoxic respiratory failure and hypoxic state as patient was 81% upon arrival with blood pressure of 185/103. Prognosis is guarded CODE STATUS: Full Code DVT prophylaxis: Heparin Discussed with: Patient, patient's , and RN Anticipated discharge date: Clinical course to determine Anticipated discharge place: Home A total of 34 minutes was spent on the care of this complex patient more than 50% of the time was spent in counseling and care coordination. Objective - Vital Signs Vital signs: Vital Signs Temp 98.0 F 04/25/22 08:57 Pulse 92 04/25/22 08:57 Resp 18 04/25/22 08:57 BP 125/79 04/25/22 08:57 Pulse Ox 94 L 04/25/22 08:57 FiO2 50 04/24/22 19:43 Intake & Output 04/24/22 04/25/22 04/25/22 18:59 06:59 18:59 Weight 58.967 kg - Labs CBC & Chem 7: 04/25/22 06:51 04/25/22 06:51 Labs: Abnormal Lab Results - Last 24 Hours (Table) 04/24/22 04/24/22 04/24/22 Range/Units 18:53 18:53 18:53 WBC 13.6 H (3.8-10.6) k/uL Neutrophils # 11.4 H (1.3-7.7) k/uL Lymphocytes # (1.0-4.8) k/uL APTT (22.0-30.0) sec VBG pH (7.31-7.41) VBG pCO2 (37-51) mmHg Sodium 134 L (137-145) mmol/L Chloride (98-107) mmol/L Creatinine (0.52-1.04) mg/dL Glucose 150 H (74-99) mg/dL Troponin I 0.115 H* (0.000-0.034) ng/mL Urine Glucose (UA) (Negative) RSV (PCR) (Not Detectd) SARS-CoV-2 (PCR) (Not Detectd) 04/24/22 04/24/22 04/24/22 Range/Units 18:53 18:53 21:33 WBC (3.8-10.6) k/uL Neutrophils # (1.3-7.7) k/uL Lymphocytes # (1.0-4.8) k/uL APTT (22.0-30.0) sec VBG pH 7.25 L (7.31-7.41) VBG pCO2 64 H (37-51) mmHg Sodium (137-145) mmol/L Chloride (98-107) mmol/L Creatinine (0.52-1.04) mg/dL Glucose (74-99) mg/dL Troponin I 0.187 H* (0.000-0.034) ng/mL Urine Glucose (UA) (Negative) RSV (PCR) Detected A (Not Detectd) SARS-CoV-2 (PCR) Detected A (Not Detectd) 04/24/22 04/24/22 04/24/22 Range/Units 22:41 23:59 23:59 WBC (3.8-10.6) k/uL Neutrophils # 9.3 H (1.3-7.7) k/uL Lymphocytes # 0.4 L (1.0-4.8) k/uL APTT (22.0-30.0) sec VBG pH (7.31-7.41) VBG pCO2 (37-51) mmHg Sodium (137-145) mmol/L Chloride (98-107) mmol/L Creatinine (0.52-1.04) mg/dL Glucose (74-99) mg/dL Troponin I 0.207 H* (0.000-0.034) ng/mL Urine Glucose (UA) Trace H (Negative) RSV (PCR) (Not Detectd) SARS-CoV-2 (PCR) (Not Detectd) 04/24/22 04/25/22 04/25/22 Range/Units 23:59 06:51 06:51 WBC (3.8-10.6) k/uL Neutrophils # (1.3-7.7) k/uL Lymphocytes # 0.7 L (1.0-4.8) k/uL APTT 20.8 L (22.0-30.0) sec VBG pH (7.31-7.41) VBG pCO2 (37-51) mmHg Sodium (137-145) mmol/L Chloride 109 H (98-107) mmol/L Creatinine 0.49 L (0.52-1.04) mg/dL Glucose 139 H (74-99) mg/dL Troponin I (0.000-0.034) ng/mL Urine Glucose (UA) (Negative) RSV (PCR) (Not Detectd) SARS-CoV-2 (PCR) (Not Detectd) 04/25/22 Range/Units 06:51 WBC (3.8-10.6) k/uL Neutrophils # (1.3-7.7) k/uL Lymphocytes # (1.0-4.8) k/uL APTT 56.3 H (22.0-30.0) sec VBG pH (7.31-7.41) VBG pCO2 (37-51) mmHg Sodium (137-145) mmol/L Chloride (98-107) mmol/L Creatinine (0.52-1.04) mg/dL Glucose (74-99) mg/dL Troponin I (0.000-0.034) ng/mL Urine Glucose (UA) (Negative) RSV (PCR) (Not Detectd) SARS-CoV-2 (PCR) (Not Detectd)
[2022-04-25] MEDS: MORPHINE SULFATE 4 MG/ML SYRINGE IV PRN (18:12)
[2022-04-25 20:16] LABS: Glucose,Whole Blood 162 mg/dL (70-110)
[2022-04-25] MEDS: SYMBICORT 160-4.5 MCG INHALER INHALATION SCH (20:21)
[2022-04-25] MEDS: ALPRAZolam 0.5 MG TAB PO PRN (21:19)
[2022-04-25] MEDS: HYDROcodone/APAP 5-325MG 1 EACH TAB PO PRN (21:19)
[2022-04-26] MEDS: ALBUTEROL HFA INHALER INHALATION SCH ×5 (01:00→19:45)
[2022-04-26] MEDS: methylPREDNISolone SOD SUCCI 125 MG/2 ML VIAL IV SCH ×4 (04:34→20:32)
[2022-04-26] MEDS: HYDROcodone/APAP 5-325MG 1 EACH TAB PO PRN ×4 (04:34→20:31)
[2022-04-26] MEDS: HEPARIN SOD,PORK IN 0.45% NACL 25,000 UNIT in 0.45% NACL 1 250ML.BAG IV SCH ×2 (04:35→08:50)
[2022-04-26] MEDS: guaiFENesin SYRUP 100MG/5ML 200 MG/10 ML CUP PO PRN (04:58)
[2022-04-26] MEDS: ALBUTEROL HFA INHALER INHALATION PRN ×2 (05:01→20:38)
[2022-04-26 06:28] LABS: Glucose,Whole Blood 135 mg/dL (70-110)
[2022-04-26] MEDS: ALPRAZolam 0.5 MG TAB PO PRN ×3 (07:40→20:34)
[2022-04-26] MEDS: ASPIRIN 81 MG PO SCH (07:41)
[2022-04-26] MEDS: METOPROLOL SUCCINATE (ER) 25 MG TAB.ER.24H PO SCH (07:41)
[2022-04-26] MEDS: NICOTINE 21MG/24HR PATCH TRANSDERM SCH (07:42)
[2022-04-26] MEDS: SYMBICORT 160-4.5 MCG INHALER INHALATION SCH ×2 (08:07→19:48)
[2022-04-26] MEDS: REMDESIVIR 100 MG in SODIUM CHLORIDE 0.9% 250 ML IVPB SCH (09:32)
[2022-04-26] MEDS: PROCHLORPERAZINE INJ 10 MG/2 ML VIAL IVP PRN (09:33)
[2022-04-26] MEDS: amLODIPine 5 MG TAB PO SCH (10:59)
--- NOTE | 2022-04-26 11:00 | CA ---
Transthoracic Echo Report Name: Evelyn Quiroz Age: 57 Gender: F : 1965 Exam Date: 04/26/2022 08:59 Exam Location: [facility] Ht (in): 62 Wt (lb): 130 Ordering Physician: Toni Pathak MD ([id number]) Attending/Referring Phys: Professional Athlete Erica Otero RDCS Procedure CPT: Indications: elevated troponin Cardiac Hx: Technical Quality: Fair Contrast 1: Total Dose (mL): Contrast 2: Total Dose (mL): MEASUREMENTS (Male / Female) Normal Values 2D ECHO LV Diastolic Diameter PLAX 2.5 cm 4.2 - 5.9 / 3.9 - 5.3 cm LV Systolic Diameter PLAX 2.1 cm IVS Diastolic Thickness 0.9 cm 0.6 - 1.0 / 0.6 - 0.9 cm LVPW Diastolic Thickness 0.9 cm 0.6 - 1.0 / 0.6 - 0.9 cm LV Relative Wall Thickness 0.7 M-MODE Aortic Root Diameter MM 2.4 cm DOPPLER TR Peak Velocity 342.7 cm/s TR Peak Gradient 47.0 mmHg Right Ventricular Systolic Press 52.0 mmHg FINDINGS Left Ventricle Normal left ventricular systolic function with no obvious regional wall motion abnormalities. Left ventricular ejection fraction is estimated at 50-55 %. Right Ventricle Normal right ventricular size and function. Moderate to severe pulmonary hypertension. Right Atrium Right atrium not well visualized. Left Atrium Normal left atrial size. Mitral Valve No mitral stenosis, regurgitation or prolapse. Aortic Valve No aortic valve stenosis or regurgitation. Tricuspid Valve Mild tricuspid regurgitation. Pulmonic Valve Trace pulmonic regurgitation. Pericardium Small pericardial effusion. Pericardial effusion located near the right atrium. Aorta Normal size aortic root and proximal ascending aorta. CONCLUSIONS Low-normal left ventricular ejection 50-55% Normal left ventricular wall thickness RVSP 52 No mitral regurgitation Small pericardial effusion without any cardiac tamponade physiology. Previewed by: Dr. Kang Duran DO (Electronically Signed) Final Date: 26 April 2022 10:59
[2022-04-26 11:52] LABS: Glucose,Whole Blood 149 mg/dL (70-110)
--- NOTE | 2022-04-26 14:22 | P.PN ---
Subjective Progress Note Date: 04/26/22 History of present illness: The patient is a 57-year-old female patient with a past medical history signif icant for smoking where she smoked 2 packs of cigarettes a day as well as history of COPD presented to the hospital complaining of increasing shortness of breath. For the last few days she has been experiencing shortness of breath associated with cough not productive for any sputum. She was experiencing symptoms of fever and chills. No abdominal pain and no nausea or vomiting or diarrhea. No anginal chest pain or chest discomfort. She decided to come where she was found to be hypoxic with oxygen saturation in the 80s. She was started on oxygen. She was diagnosed with COPD exacerbation. We consulted to see the patient mainly because of abnormal cardiac enzymes and abnormal troponin. The troponin appeared to be flat across the board. The EKG showed sinus tachycardia with no significant ischemic ST or T-wave abnormalities. Please note that the patient was tested positive for COVID infection.. The rest of the blood work overall clinically unremarkable. 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 On examination the patient does have severe bilateral expiratory wheezing and diminished breathing sounds. She has regular rhythm and she is in sinus tachycardia. No lower extremities edema noted. 1/3 Patient has been afebrile, heart rate 101, blood pressure 176/92, pulse ox 94% on 4 L nasal cannula. No new concerns from the patient. Breathing status is stable. She is followed by pulmonary medicine. Echocardiogram reveals EF of 50-55%. Small pericardial effusion without cardiac tamponade. Physical examination: Gen: This is a 57-year-old female. She appears to be in no acute distress. VS: reviewed HEENT: Head is atraumatic, normocephalic. Pupils equal, round. Sclerae is anicteric. NECK: Supple. No JVD. No lymphadenopathy. LUNGS: Diminished bilaterally with wheezing. No intercostal retractions. HEART: Regular rate and rhythm. No murmur. ABDOMEN: Soft. Bowel sounds are present. No masses. No tenderness. EXTREMITIES: No pedal edema. No calf tenderness. NEUROLOGICAL: Patient is awake, alert and oriented. Assessment COVID-19 infection COPD exacerbation Possible underlying pneumonia related to COVID-19 Acute hypoxic respiratory failure Evidence of myocardial injury was no evidence of ischemia Sinus tachycardia Significant history of smoking Plan Consider conservative medical approach at this point in the light of absence of anginal chest pain and ischemic ST changes on the EKG I believe that the abnormal troponin is likely related to hypoxemia and sinus tachycardia. Severe CAD to be ruled out down the line Continue aspirin 81 mg daily, Toprol-XL 25 mg daily Continue heparin IV for additional 24 hours, discontinue on Monday Add amlodipine 5 mg daily Follow-up with the patient Nurse practitioner note has been reviewed, I agree with documented findings and plan of care. Patient was seen and examined. Objective - Vital Signs Vital signs: Vital Signs Temp 98.1 F 04/26/22 07:37 Pulse 110 H 04/26/22 07:37 Resp 20 04/26/22 07:37 BP 171/92 04/26/22 07:37 Pulse Ox 95 04/26/22 07:37 FiO2 50 04/24/22 19:43 Intake & Output 04/25/22 04/26/22 04/26/22 18:59 06:59 18:59 Intake Total 20 229.999 Balance 20 229.999 Weight 58.967 kg Intake: IV 20 Invasive Line 1 10 Invasive Line 3 10 Intake, IV Titration 229.999 Amount Heparin Sod,Pork in 0.45% 229.999 NaCl 25,000 unit In 0.45 % NaCl 1 250ml.bag @ 12 UNITS/KG/HR 7.076 mls/hr IV .Q24H [facility] Rx#: [id number] Other: Voiding Method Bedside Commode Bedside Commode Bedside Commode # Voids 3 - Labs CBC & Chem 7: 04/25/22 06:51 04/25/22 06:51 Labs: Abnormal Lab Results - Last 24 Hours (Table) 04/25/22 04/26/22 04/26/22 Range/Units 20:14 06:27 07:45 APTT 32.4 H (22.0-30.0) sec POC Glucose (mg/dL) 162 H 135 H (70-110) mg/dL
--- NOTE | 2022-04-26 14:34 | P.PN ---
Subjective Progress Note Date: 04/26/22 Principal diagnosis: Shortness of breath. Pulmonary consult dated 04/25/2022. 57-year-old female who presented to the emergency department on April 24, complaining of shortness of breath. The patient hasn't been feeling well for about 3 days prior to admission. The patient does have a history of underlying COPD, although she's never seen a lung doctor, or had pulmonary function test. She's been smoking for more than 40 years, at one to 2 packs a day according to her . The patient came in with shortness of breath, cough, wheezing, and chest tightness. She was coughing a small amount of phlegm up. It was mostly white. She also had fever, and body aches. The patient was evaluated in emergency room, and did test positive for both respiratory syncytial virus, and coronavirus. In addition, she had elevated troponins, and was started on IV heparin. She has no other significant past medical history, does not see a doctor on a regular basis. Currently, she is on 5 L nasal cannula. She is receiving IV heparin. She was previously on BiPAP, with settings of 10/5 and 50%. In the past, she did see Dr. Mica Michelle. White count 6.8, hemoglobin 12.9, hematocrit 38.3, and platelet count was normal. PTT was 56.3. Sodium 137, potassium 4.7, chlorides 109, CO2 23, BUN 8, and creatinine 0.49. Troponins were 0.115, 0.187, and 0.207. Urine was negative. The patient did test positive for both RSV and coronavirus. The patient's chest x-ray was co nsistent with COPD. She had hyperlucent lung carrasco, as well as air trapping, flat diaphragms, and a vertically hanging hard. Progress note dated 04/26/2022. The patient is seen today in room 367. The patient is on 4 L of oxygen. She's receiving IV heparin. The patient does have a diagnosis of coronavirus infection. She does have a history of underlying COPD, from years of tobacco use, at 2 packs a day. She apparently has been smoking for 40 years according to her and her . No new labs today other than a PTT of 32.4. Laboratory data from April 25 is reviewed. The patient also tested positive for respiratory syncytial virus as well as coronavirus infection. Objective - Vital Signs Vital signs: Vital Signs Temp 97.5 F L 04/26/22 11:00 Pulse 101 H 04/26/22 13:17 Resp 20 04/26/22 11:37 BP 176/92 04/26/22 11:00 Pulse Ox 94 L 04/26/22 11:37 FiO2 50 04/24/22 19:43 Intake & Output 04/25/22 04/26/22 04/26/22 18:59 06:59 18:59 Intake Total 20 229.999 Balance 20 229.999 Weight 58.967 kg Intake: IV 20 Invasive Line 1 10 Invasive Line 3 10 Intake, IV Titration 229.999 Amount Heparin Sod,Pork in 0.45% 229.999 NaCl 25,000 unit In 0.45 % NaCl 1 250ml.bag @ 12 UNITS/KG/HR 7.076 mls/hr IV .Q24H [facility] Rx#: [id number] Other: Voiding Method Bedside Commode Bedside Commode Bedside Commode # Voids 3 1 - Exam No acute distress, oriented 3. No audible wheezing, use of accessory muscles, or conversational dyspnea. The patient is currently on 4 L of oxygen. HEENT examination is grossly unremarkable. Neck supple. Full range of motion. No adenopathy thyromegaly or neck vein distention. Cardiovascular examination reveals regular rhythm rate. S1-S2 normal. No S3 or S4. No discernible murmur noted. Heart rate 100 bpm. Heart sounds are distant. Lungs reveal inspiratory and expiratory wheezes and rhonchi. No crackles. Breath sounds equal bilaterally but diminished throughout. Slight prolongation noted. Saturations are 95 %. Abdomen soft bowel sounds are heard. No masses or tenderness. Extremities are intact. No cyanosis clubbing or edema. Skin is without rash or lesion. Neurologic examination is brief but nonfocal. - Labs CBC & Chem 7: 04/25/22 06:51 04/25/22 06:51 Labs: Abnormal Lab Results - Last 24 Hours (Table) 04/25/22 04/26/22 04/26/22 Range/Units 20:14 06:27 07:45 APTT 32.4 H (22.0-30.0) sec POC Glucose (mg/dL) 162 H 135 H (70-110) mg/dL 04/26/22 Range/Units 11:51 APTT (22.0-30.0) sec POC Glucose (mg/dL) 149 H (70-110) mg/dL Assessment and Plan Assessment: Acute hypoxemic respiratory failure, secondary to COPD exacerbation, triggered by respiratory syncytial virus, and coronavirus. No evidence of coronavirus associated pneumonia. Ongoing tobacco use with nicotine addiction. History of migraine cephalgia. Stress urinary incontinence. History of kidney stones. History of anxiety/depression. History of bipolar disorder. Plan: Plan dated 04/25/2022. The patient is seen in room 3, the emergency room. The patient is given REM, corticosteroids, albuterol inhaler, Symbicort inhaler, and a nicotine patch. Overall prognosis remains guarded. We will continue to follow the patient and make recommendations along the way. We counseled the patient about the importance of smoking cessation. In addition, after discharge, the patient should follow-up in our office, for complete pulmonary function testing. I suspect that she has pretty significant emphysema. Plan dated 04/26/2022. The patient is seen today in room 367. She remains on 4 L of oxygen. She's laying on her left side, and complains about being hot. Labs, x-rays, and medications are reviewed. The patient remains on albuterol inhaler, Symbicort, Solu-Medrol, Robitussin, nicotine patch, and Tessalon Perles. The patient was also placed on REM. We will continue to follow make recommendations along the way. Prognosis is certainly guarded. Time with Patient: Less than 30
--- NOTE | 2022-04-26 16:55 | P.PN ---
Subjective Progress Note Date: 04/26/22 Hospital course: Patient is a 57-year-old female with a PMH of COPD and tobacco abuse who presents to the emergency room with complaints of shortness of breath and cough. The patient reports that her symptoms started roughly 2 days ago with gradually worsening shortness of breath, cough productive of white and green phlegm, palpitations, and occasional chest pressure. She reported that her symptoms were worse than her prior episodes of COPD exacerbations. Upon arrival in the emergency department on 04/24/22, the patient was found to be hypoxic at SpO2 81% on room air, pulse 122, BP 185/103, respiratory rate 26, and temp 98.8F. Chest x-ray was consistent with COPD with EKG showing sinus tachycardia at 113 bpm. Laboratory evaluation was remarkable for troponin of 0.115, kim virus PCR an RSV positive, glucose 150, pH on VBG 7.25, pCO2 64, WBC count 13.6, and proBNP 203. The case was discussed in detail with the ED physician and patient was admitted under our services with consultation to pulmonology and cardiology at this time. Troponins trended overnight continuing to elevate from 0.115, 0.187 and 0.207. Urinalysis was obtained negative for blood or infection. Pro- calcitonin was negative at 0.08. Discussed with patient the recommendations of starting Remdesivir and she discussed with and they agreed to begin this medication and jingle writer ordered at this time. Cardiology evaluating and recommending patient to continue heparin infusion for an additional 24 hours with plans to discontinue on 04/27/22. 04/26/22: Patient seen and fully evaluated at bedside this morning. Patient reports feeling anxious with continued shortness of breath. Patient currently on 6 L O2 via nasal cannula with SpO2 94-95% she is tachycardic with heart rate of 101 and hypertensive with blood pressure 176/92. Patient encouraged to relax. Patient currently denies having any chest pain or pressure just reports she just feels awful everywhere. Patient to receive day 2 out of 5 for Remdesivir today. We will continue to monitor patient closely and attempt to wean down oxygen as patient tolerates. Patient to continue with Xanax as needed for anxiety. Patient to remain on Solu-Medrol, Symbicort, and scheduled as well as as needed Ventolin inhaler treatments. Cardiology recommending an additional 24 hours of IV heparin for treatment of non-ST elevated NC. Physical exam: General: Nontoxic, mild distress secondary to increased oxygenation needs, and feelings of anxiety and appears stated age. Derm: Skin warm and dry, normal coloration for ethnicity. Head: Atraumatic, normocephalic and symmetric. Eyes: EOMs intact, no lid lag, and anicteric sclera Mouth: no lip lesions, mucus membranes moist Cardiovascular: regular rate and rhythm with normal S1S2, systolic murmur, positive posterior tibial pulses bilaterally, and cap refill < 2 seconds. Lungs: Respirations even, regular, and unlabored on 6L O2 via nasal cannula. Lungs with diffuse scattered rhonchi throughout expiratory wheezes throughout all lung carrasco. Abdominal: soft, nontender to palpation, no guarding, no appreciable organomegaly Ext: ROM intact. No gross muscle atrophy, no edema, no contractures Neuro: Speech clear, face symmetrical and CN II-XII grossly intact with no noted focal neuro deficits Psych: Alert and oriented to person, place, time, and situation. Patient appears anxious. Assessment and Plan of Care: Acute hypercapnic and hypoxic respiratory failure secondary to acute COPD exacerbation with COVID-19 and RSV infections COPD with acute exacerbation secondary to above COVID-19 pneumonia RSV infection Nicotine dependence -Continue with Solu-Medrol -Ventolin inhaler scheduled 4 times daily and as needed for wheezing/shortness of breath. -Patient to continue with Symbicort -Supplemental oxygen to continue as needed and recommend titrating down as patient tolerates. -Patient to receive Remdesivir dose 1/5 today. -Nicotine patch provided and patient was counseled on smoking cessation. -Pulmonary following, appreciate further recommendations. Non-ST elevation NC, likely type II secondary to prolonged hypoxia as patient was 81% on room air upon arrival. Small pericardial effusion -Heparin infusion to continue at this time -Patient to continue aspirin, atorvastatin, and metoprolol. -Cardiology following recommending conservative medical approach in continuation of heparin infusion for an additional 24 hours. -Echocardiogram completed revealing EF of 50-55% with small pericardial effusion without reports of any cardiac tamponade physiology. -Patient to remain on telemetry monitoring. Hypertensive urgency -Blood pressures have improved, however patient continues to have intermittent episodes of uncontrolled hypertension with systolic pressures 170s. Norvasc was added on to antihypertensive medication regimen with metoprolol. CODE STATUS: Full Code DVT prophylaxis: Heparin Discussed with: Patient and RN Anticipated discharge date: Clinical course to determine, Prognosis is guarded Anticipated discharge place: Home A total of 35 minutes was spent on the care of this complex patient more than 50% of the time was spent in counseling and care coordination. I reviewed the documentation as provided by the JULIAN above, who is the original author of this note. I agree with the documented assessment and plan, with the following changes: none Objective - Vital Signs Vital signs: Vital Signs Temp 97.5 F L 04/26/22 15:00 Pulse 102 H 04/26/22 15:00 Resp 20 04/26/22 15:00 BP 157/82 04/26/22 15:00 Pulse Ox 94 L 04/26/22 15:00 FiO2 50 04/24/22 19:43 Intake & Output 04/25/22 04/26/22 04/26/22 18:59 06:59 18:59 Intake Total 20 229.999 Balance 20 229.999 Weight 58.967 kg Intake: IV 20 Invasive Line 1 10 Invasive Line 3 10 Intake, IV Titration 229.999 Amount Heparin Sod,Pork in 0.45% 229.999 NaCl 25,000 unit In 0.45 % NaCl 1 250ml.bag @ 12 UNITS/KG/HR 7.076 mls/hr IV .Q24H [facility] Rx#: [id number] Other: Voiding Method Bedside Commode Bedside Commode Bedside Commode # Voids 3 1 - Labs CBC & Chem 7: 05/01/22 10:17 05/01/22 10:17 Labs: Abnormal Lab Results - Last 24 Hours (Table) 04/25/22 04/26/22 04/26/22 Range/Units 20:14 06:27 07:45 APTT 32.4 H (22.0-30.0) sec POC Glucose (mg/dL) 162 H 135 H (70-110) mg/dL 04/26/22 Range/Units 11:51 APTT (22.0-30.0) sec POC Glucose (mg/dL) 149 H (70-110) mg/dL
[2022-04-26 17:01] LABS: Glucose,Whole Blood 145 mg/dL (70-110)
[2022-04-26] MEDS: ATORVASTATIN 80 MG TAB PO SCH (20:30)
[2022-04-26] MEDS: BENZONATATE 100 MG CAP PO PRN (20:31)
[2022-04-26 20:32] LABS: Glucose,Whole Blood 173 mg/dL (70-110)
[2022-04-27] MEDS: MORPHINE SULFATE 4 MG/ML SYRINGE IV PRN ×3 (04:11→17:04)
[2022-04-27] MEDS: methylPREDNISolone SOD SUCCI 125 MG/2 ML VIAL IV SCH ×4 (05:58→20:40)
[2022-04-27 06:21] LABS: Glucose,Whole Blood 130 mg/dL (70-110)
[2022-04-27] MEDS: ALBUTEROL HFA INHALER INHALATION SCH ×4 (07:51→20:22)
[2022-04-27] MEDS: SYMBICORT 160-4.5 MCG INHALER INHALATION SCH ×2 (07:52→20:22)
[2022-04-27] MEDS: PROCHLORPERAZINE INJ 10 MG/2 ML VIAL IVP PRN (09:17)
[2022-04-27] MEDS: ASPIRIN 81 MG PO SCH (09:19)
[2022-04-27] MEDS: METOPROLOL SUCCINATE (ER) 25 MG TAB.ER.24H PO SCH (09:20)
[2022-04-27] MEDS: BENZONATATE 100 MG CAP PO PRN ×2 (09:20→20:39)
[2022-04-27] MEDS: amLODIPine 5 MG TAB PO SCH (09:20)
[2022-04-27] MEDS: REMDESIVIR 100 MG in SODIUM CHLORIDE 0.9% 250 ML IVPB SCH (09:20)
[2022-04-27] MEDS: NICOTINE 21MG/24HR PATCH TRANSDERM SCH (09:21)
[2022-04-27 09:45] LABS: HCT 37.6 % (34.0-46.0); HGB 12.2 gm/dL (11.4-16.0); MCH 31.1 pg (25.0-35.0); MCHC 32.4 g/dL (31.0-37.0); Mean Platelet Volume 9.2; Platelet Count 266 k/uL (150-450); RBC 3.92 m/uL (3.80-5.40); RDW 12.9 % (11.5-15.5); WBC 18.5 k/uL (3.8-10.6)
[2022-04-27] MEDS ORDERED: METOPROLOL SUCCINATE (ER) 25 MG TAB.ER.24H PO STA (09:53)
[2022-04-27 09:57] LABS: ALT 63 U/L (4-34); AST 62 U/L (14-36); African American GFR (CKD) >90 (>60 ml/min/1.73 sqM); Albumin 4.1 g/dL (3.5-5.0); Alkaline Phosphatase 58 U/L (38-126); Anion Gap 7 mmol/L; Blood Urea Nitrogen 23 mg/dL (7-17); Calcium 9.3 mg/dL (8.4-10.2); Carbon Dioxide 36 mmol/L (22-30); Chloride 96 mmol/L (98-107); Glucose 187 mg/dL (74-99); Magnesium 2.1 mg/dL (1.6-2.3); Non-African American GFR(CKD) >90 (>60 ml/min/1.73 sqM); Potassium 4.5 mmol/L (3.5-5.1); Sodium 139 mmol/L (137-145); Total Bilirubin 0.2 mg/dL (0.2-1.3); Total Protein 6.7 g/dL (6.3-8.2)
[2022-04-27] MEDS: ALPRAZolam 0.5 MG TAB PO PRN ×2 (11:17→20:39)
[2022-04-27 11:24] LABS: Glucose,Whole Blood 160 mg/dL (70-110)
--- NOTE | 2022-04-27 11:33 | P.PN ---
Subjective Progress Note Date: 04/27/22 57-year-old female who presented to the emergency department on April 24, complaining of shortness of breath. The patient hasn't been feeling well for about 3 days prior to admission. The patient does have a history of underlying COPD, although she's never seen a lung doctor, or had pulmonary function test. She's been smoking for more than 40 years, at one to 2 packs a day according to her . The patient came in with shortness of breath, cough, wheezing, and chest tightness. She was coughing a small amount of phlegm up. It was mostly white. She also had fever, and body aches. The patient was evaluated in emergency room, and did test positive for both respiratory syncytial virus, and coronavirus. In addition, she had elevated troponins, and was started on IV heparin. She has no other significant past medical history, does not see a doctor on a regular basis. Currently, she is on 5 L nasal cannula. She is receiving IV heparin. She was previously on BiPAP, with settings of 10/5 and 50%. In the past, she did see Dr. Mica Michelle. White count 6.8, hemoglobin 12.9, hematocrit 38.3, and platelet count was normal. PTT was 56.3. Sodium 137, potassium 4.7, chlorides 109, CO2 23, BUN 8, and creatinine 0.49. Troponins were 0.115, 0.187, and 0.207. Urine was negative. The patient did test positive for both RSV and coronavirus. The patient's chest x-ray was consistent with COPD. She had hyperlucent lung carrasco, as well as air trapping, flat diaphragms, and a vertically hanging hard. Progress note dated 04/26/2022. The patient is seen today in room 367. The patient is on 4 L of oxygen. She's receiving IV heparin. The patient does have a diagnosis of coronavirus infection. She does have a history of underlying COPD, from years of tobacco use, at 2 packs a day. She apparently has been smoking for 40 years according to her and her . No new labs today other than a PTT of 32.4. Laboratory data from April 25 is reviewed. The patient also tested positive for respiratory syncytial virus as well as coronavirus infection. c 04/27/2022, the patient is still struggling with her breathing. She is bronchospastic and wheezy and she remains on 4 L of O2 nasal cannula. As stated earlier, the patient is on a combination of infection with RSV and Covid 19. She had received Covid 19 vaccination. Currently she is receiving IV Solu- Medrol, IV Remdesivir, and she is also on the Ventolin HFA 2 puffs 4 times a day. She is also on Symbicort 2 puffs twice a day. She is a chronic smoker and she is on a nicotine patch. She is slow to progress at this point in time. She is not utilizing the BiPAP and she is on O2 at 4 L nasal cannula Objective - Vital Signs Vital signs: Vital Signs Temp 98.0 F 04/27/22 08:00 Pulse 127 H 04/27/22 08:00 Resp 20 04/27/22 08:00 BP 167/83 04/27/22 08:00 Pulse Ox 94 L 04/27/22 08:00 FiO2 50 04/24/22 19:43 Intake & Output 04/26/22 04/27/22 04/27/22 18:59 06:59 18:59 Intake Total 229.999 Balance 229.999 Intake: Intake, IV Titration 229.999 Amount Heparin Sod,Pork in 0.45% 229.999 NaCl 25,000 unit In 0.45 % NaCl 1 250ml.bag @ 12 UNITS/KG/HR 7.076 mls/hr IV .Q24H [facility] Rx#: [id number] Other: Voiding Method Bedside Commode Bedside Commode # Voids 1 1 # Bowel Movements 1 - Exam - Exam No acute distress, oriented 3. No audible wheezing, use of accessory muscles, or conversational dyspnea. The patient is currently on 4 L of oxygen. HEENT examination is grossly unremarkable. Neck supple. Full range of motion. No adenopathy thyromegaly or neck vein distention. Cardiovascular examination reveals regular rhythm rate. S1-S2 normal. No S3 or S4. No discernible murmur noted. Heart rate 100 bpm. Heart sounds are distant . Lungs reveal inspiratory and expiratory wheezes and rhonchi. No crackles. Breath sounds equal bilaterally but diminished throughout. Slight prolongation noted. Saturations are 95 %. Abdomen soft bowel sounds are heard. No masses or tenderness. Extremities are intact. No cyanosis clubbing or edema. Skin is without rash or lesion. Neurologic examination is brief but nonfocal. - Labs CBC & Chem 7: 04/27/22 09:11 04/27/22 09:11 Labs: Abnormal Lab Results - Last 24 Hours (Table) 04/26/22 04/26/22 04/26/22 Range/Units 11:51 17:00 17:18 WBC (3.8-10.6) k/uL APTT 45.6 H (22.0-30.0) sec Chloride (98-107) mmol/L Carbon Dioxide (22-30) mmol/L BUN (7-17) mg/dL Creatinine (0.52-1.04) mg/dL Glucose (74-99) mg/dL POC Glucose (mg/dL) 149 H 145 H (70-110) mg/dL AST (14-36) U/L ALT (4-34) U/L 04/26/22 04/27/22 04/27/22 Range/Units 20:31 06:19 09:11 WBC 18.5 H (3.8-10.6) k/uL APTT (22.0-30.0) sec Chloride (98-107) mmol/L Carbon Dioxide (22-30) mmol/L BUN (7-17) mg/dL Creatinine (0.52-1.04) mg/dL Glucose (74-99) mg/dL POC Glucose (mg/dL) 173 H 130 H (70-110) mg/dL AST (14-36) U/L ALT (4-34) U/L 04/27/22 04/27/22 04/27/22 Range/Units 09:11 09:11 11:22 WBC (3.8-10.6) k/uL APTT 50.3 H (22.0-30.0) sec Chloride 96 L (98-107) mmol/L Carbon Dioxide 36 H (22-30) mmol/L BUN 23 H (7-17) mg/dL Creatinine 0.51 L (0.52-1.04) mg/dL Glucose 187 H (74-99) mg/dL POC Glucose (mg/dL) 160 H (70-110) mg/dL AST 62 H (14-36) U/L ALT 63 H (4-34) U/L Assessment and Plan Plan: Assessment and Plan Acute hypoxemic respiratory failure, secondary to COPD exacerbation, triggered by respiratory syncytial virus, and coronavirus. No evidence of coronavirus associated pneumonia. Ongoing tobacco use with nicotine addiction. History of migraine cephalgia. Stress urinary incontinence. History of kidney stones. History of anxiety/depression. History of bipolar disorder. Plan Patient is still bronchospastic and symptomatically from her double infection with RSV and Covid 19 Continue bronchodilators and Symbicort Continue IV Solu-Medrol Continue IV Remdesivir per protocol Patient is currently on 4 L of O2 nasal cannula Nicotine patch We'll follow Noted the pro calcitonin level has been low. The resident's limited markers regarding Covid 19 has not been checked. Chest x-ray was done at time of admission on 04/24/2021 showed COPD without any acute disease.
--- NOTE | 2022-04-27 12:12 | P.PN ---
Subjective Progress Note Date: 04/27/22 Principal diagnosis: Respiratory failure Hospital Course: Patient is a 57-year-old female with a PMH of COPD and tobacco abuse who presents to the emergency room with complaints of shortness of breath and cough. The patient reports that her symptoms started roughly 2 days ago with gradually worsening shortness of breath, cough productive of white and green phlegm, palpitations, and occasional chest pressure. She reported that her symptoms were worse than her prior episodes of COPD exacerbations. Upon arrival in the emergency department on 04/24/22, the patient was found to be hypoxic at SpO2 81% on room air, pulse 122, BP 185/103, respiratory rate 26, and temp 98.8F. Chest x-ray was consistent with COPD with EKG showing sinus tachycardia at 113 bpm. Laboratory evaluation was remarkable for troponin of 0.115, kim virus PCR an RSV positive, glucose 150, pH on VBG 7.25, pCO2 64, WBC count 13.6, and proBNP 203. The case was discussed in detail with the ED physician and patient was admitted under our services with consultation to pulmonology and cardiology at this time. Troponins trended overnight continuing to elevate from 0.115, 0.187 and 0.207. Urinalysis was obtained negative for blood or infection. Pro- calcitonin was negative at 0.08. Patient currently on steroids, bronchodilators, and remdesivir. Also on heparin drip for NSTEMI. Subjective: Patient seen and examined at bedside. No acute events overnight. Currently on 4 L of oxygen. She claims that her shortness of breath has improved. Her cough is minimal, and nonproductive. She denies any abdominal pain, chest pain, nausea, vomiting, diarrhea, constipation, or urinary complaints. Pertinent positives and negatives as discussed above, a complete review of syst ems was performed and all other systems are negative. Vitals Signs Reviewed. General: nontoxic, in mild respiratory distress, appears at stated age Derm: warm, dry Head: atraumatic, normocephalic, symmetric Eyes: EOMI, no lid lag, anicteric sclera Mouth: no lip lesion, mucus membranes moist Cardiovascular: S1S2 reg, tachycardic, no murmur Lungs: Decreased breath sounds bilaterally, no accessory muscle use, supplemental oxygen Abdominal: soft, nontender to palpation, no guarding, no appreciable organomegaly Ext: no gross muscle atrophy, no edema, no contractures Neuro: CN II-XI grossly intact, no focal neuro deficits Psych: Alert, oriented, appropriate affect Assessment and Plan: Acute hypercapnic and hypoxic respiratory failure secondary to acute COPD exacerbation with COVID-19 and RSV infections COPD with acute exacerbation secondary to above COVID-19 pneumonia RSV infection Leukocytosis - likely steroid-induced Nicotine dependence -Continue steroids, bronchodilators -On Remdesivir -Nicotine patch provided and patient was counseled on smoking cessation. -Pulmonary following, appreciate further recommendations. Non-ST elevation NC, likely type II secondary to prolonged hypoxia Small pericardial effusion -Heparin drip now discontinued -Patient to continue aspirin, atorvastatin, and metoprolol. -Echocardiogram completed revealing EF of 50-55% with small pericardial effusion without reports of any cardiac tamponade physiology. -Patient to remain on telemetry monitoring. Hypertensive urgency -Blood pressures have improved, however patient continues to have intermittent episodes of uncontrolled hypertension with systolic pressures 170s. -Patient currently on metoprolol and amlodipine DVT ppx: Subcu heparin Code status: Full code Anticipated discharge place: Home Anticipated discharge time: pending Clinical course Objective - Vital Signs Vital signs: Vital Signs Temp 98.0 F 04/27/22 08:00 Pulse 127 H 04/27/22 08:00 Resp 20 04/27/22 08:00 BP 167/83 04/27/22 08:00 Pulse Ox 94 L 04/27/22 08:00 FiO2 50 04/24/22 19:43 Intake & Output 04/26/22 04/27/22 04/27/22 18:59 06:59 18:59 Intake Total 229.999 Balance 229.999 Intake: Intake, IV Titration 229.999 Amount Heparin Sod,Pork in 0.45% 229.999 NaCl 25,000 unit In 0.45 % NaCl 1 250ml.bag @ 12 UNITS/KG/HR 7.076 mls/hr IV .Q24H [place] Rx#: [id number] Other: Voiding Method Bedside Commode Bedside Commode # Voids 1 1 # Bowel Movements 1 - Labs CBC & Chem 7: 04/27/22 09:11 04/27/22 09:11 Labs: Abnormal Lab Results - Last 24 Hours (Table) 04/26/22 04/26/22 04/26/22 Range/Units 17:00 17:18 20:31 WBC (3.8-10.6) k/uL APTT 45.6 H (22.0-30.0) sec Chloride (98-107) mmol/L Carbon Dioxide (22-30) mmol/L BUN (7-17) mg/dL Creatinine (0.52-1.04) mg/dL Glucose (74-99) mg/dL POC Glucose (mg/dL) 145 H 173 H (70-110) mg/dL AST (14-36) U/L ALT (4-34) U/L 04/27/22 04/27/22 04/27/22 Range/Units 06:19 09:11 09:11 WBC 18.5 H (3.8-10.6) k/uL APTT (22.0-30.0) sec Chloride 96 L (98-107) mmol/L Carbon Dioxide 36 H (22-30) mmol/L BUN 23 H (7-17) mg/dL Creatinine 0.51 L (0.52-1.04) mg/dL Glucose 187 H (74-99) mg/dL POC Glucose (mg/dL) 130 H (70-110) mg/dL AST 62 H (14-36) U/L ALT 63 H (4-34) U/L 04/27/22 04/27/22 Range/Units 09:11 11:22 WBC (3.8-10.6) k/uL APTT 50.3 H (22.0-30.0) sec Chloride (98-107) mmol/L Carbon Dioxide (22-30) mmol/L BUN (7-17) mg/dL Creatinine (0.52-1.04) mg/dL Glucose (74-99) mg/dL POC Glucose (mg/dL) 160 H (70-110) mg/dL AST (14-36) U/L ALT (4-34) U/L
--- NOTE | 2022-04-27 13:20 | P.PN ---
Subjective Progress Note Date: 04/27/22 History of present illness: The patient is a 57-year-old female patient with a past medical history signif icant for smoking where she smoked 2 packs of cigarettes a day as well as history of COPD presented to the hospital complaining of increasing shortness of breath. For the last few days she has been experiencing shortness of breath associated with cough not productive for any sputum. She was experiencing symptoms of fever and chills. No abdominal pain and no nausea or vomiting or diarrhea. No anginal chest pain or chest discomfort. She decided to come where she was found to be hypoxic with oxygen saturation in the 80s. She was started on oxygen. She was diagnosed with COPD exacerbation. We consulted to see the patient mainly because of abnormal cardiac enzymes and abnormal troponin. The troponin appeared to be flat across the board. The EKG showed sinus tachycardia with no significant ischemic ST or T-wave abnormalities. Please note that the patient was tested positive for COVID infection.. The rest of the blood work overall clinically unremarkable. No history of coronary artery disease or congestive heart failure or cardiac arrhythmia in the patient doesn't follow with any shed hand regularly. On examination the patient does have severe bilateral expiratory wheezing and diminished breathing sounds. She has regular rhythm and she is in sinus tachycardia. No lower extremities edema noted. 1/3 Patient has been afebrile, heart rate 101, blood pressure 176/92, pulse ox 94% on 4 L nasal cannula. No new concerns from the patient. Breathing status is stable. She is followed by pulmonary medicine. Echocardiogram reveals EF of 50-55%. Small pericardial effusion without cardiac tamponade. 1/ Heart rate is low 100s sometimes up to 120s. Telemetry has been sinus rhythm. She has been afebrile, blood pressure readings have been consistently elevated. We will plan to discontinue heparin drip today and increase Toprol-XL. WBC 18.5. Potassium 4.5, BUN 23 creatinine 0.51. Physical examination: Gen: This is a 57-year-old female. She appears to be in no acute distress. VS: reviewed Assessment COVID-19 infection COPD exacerbation Possible underlying pneumonia related to COVID-19 Acute hypoxic respiratory failure Evidence of myocardial injury was no evidence of ischemia Sinus tachycardia Significant history of smoking Plan Consider conservative medical approach at this point in the light of absence of anginal chest pain and ischemic ST changes on the EKG I believe that the abnormal troponin is likely related to hypoxemia and sinus tachycardia. Severe CAD to be ruled out down the line Continue aspirin 81 mg daily, Toprol-XL increased to 50 mg daily Discontinue heparin drip hours, discontinue on Monday Continue amlodipine 5 mg daily Cardiology will sign off and follow on an as-needed basis. Please reconsult for any new concerns. Patient may follow up with Dr. Pathak following discharge. Nurse practitioner note has been reviewed, I agree with documented findings and plan of care. Patient was seen and examined. Objective - Vital Signs Vital signs: Vital Signs Temp 98.0 F 04/27/22 04:00 Pulse 107 H 04/27/22 04:00 Resp 18 04/27/22 04:00 BP 172/88 04/27/22 04:00 Pulse Ox 98 04/27/22 04:00 FiO2 50 04/24/22 19:43 Intake & Output 04/26/22 04/27/22 04/27/22 18:59 06:59 18:59 Intake Total 229.999 Balance 229.999 Intake: Intake, IV Titration 229.999 Amount Heparin Sod,Pork in 0.45% 229.999 NaCl 25,000 unit In 0.45 % NaCl 1 250ml.bag @ 12 UNITS/KG/HR 7.076 mls/hr IV .Q24H [facility] Rx#: [id number] Other: Voiding Method Bedside Commode Bedside Commode # Voids 1 1 # Bowel Movements 1 - Labs CBC & Chem 7: 04/27/22 09:11 04/27/22 09:11 Labs: Abnormal Lab Results - Last 24 Hours (Table) 04/26/22 04/26/22 04/26/22 Range/Units 11:51 17:00 17:18 WBC (3.8-10.6) k/uL APTT 45.6 H (22.0-30.0) sec POC Glucose (mg/dL) 149 H 145 H (70-110) mg/dL 04/26/22 04/27/22 04/27/22 Range/Units 20:31 06:19 09:11 WBC 18.5 H (3.8-10.6) k/uL APTT (22.0-30.0) sec POC Glucose (mg/dL) 173 H 130 H (70-110) mg/dL 04/27/22 Range/Units 09:11 WBC (3.8-10.6) k/uL APTT 50.3 H (22.0-30.0) sec POC Glucose (mg/dL) (70-110) mg/dL
[2022-04-27 16:36] LABS: Glucose,Whole Blood 258 mg/dL (70-110)
[2022-04-27] MEDS: HEPARIN SODIUM,PORCINE/PF 5,000 UNIT/0.5 ML SYRINGE SQ SCH (17:03)
[2022-04-27 20:25] LABS: Glucose,Whole Blood 145 mg/dL (70-110)
[2022-04-27] MEDS: MELATONIN 3 MG TABLET PO PRN (20:39)
[2022-04-27] MEDS: ATORVASTATIN 80 MG TAB PO SCH (20:39)
[2022-04-27] MEDS: HYDROcodone/APAP 5-325MG 1 EACH TAB PO PRN (20:39)
[2022-04-28] MEDS: MORPHINE SULFATE 4 MG/ML SYRINGE IV PRN ×3 (02:11→17:13)
[2022-04-28] MEDS: methylPREDNISolone SOD SUCCI 125 MG/2 ML VIAL IV SCH ×4 (02:11→21:28)
[2022-04-28] MEDS: HEPARIN SODIUM,PORCINE/PF 5,000 UNIT/0.5 ML SYRINGE SQ SCH ×4 (02:12→23:45)
[2022-04-28 06:06] LABS: Glucose,Whole Blood 139 mg/dL (70-110)
[2022-04-28] MEDS: SYMBICORT 160-4.5 MCG INHALER INHALATION SCH ×2 (07:19→19:35)
[2022-04-28] MEDS: ALBUTEROL HFA INHALER INHALATION SCH ×4 (07:19→19:34)
[2022-04-28] MEDS: guaiFENesin SYRUP 100MG/5ML 200 MG/10 ML CUP PO PRN (09:19)
[2022-04-28] MEDS: METOPROLOL SUCCINATE (ER) 50 MG TAB.ER.24H PO SCH (09:19)
[2022-04-28] MEDS: BENZONATATE 100 MG CAP PO PRN (09:19)
[2022-04-28] MEDS: amLODIPine 5 MG TAB PO SCH (09:19)
[2022-04-28] MEDS: ASPIRIN 81 MG PO SCH (09:19)
[2022-04-28] MEDS: REMDESIVIR 100 MG in SODIUM CHLORIDE 0.9% 250 ML IVPB SCH (09:23)
[2022-04-28] MEDS: NICOTINE 21MG/24HR PATCH TRANSDERM SCH (09:27)
--- NOTE | 2022-04-28 09:34 | XR ---
EXAMINATION TYPE: XR chest 1V portable DATE OF EXAM: 04/28/2022 COMPARISON: 04/24/2022 HISTORY: Shortness of breath TECHNIQUE: Single frontal view of the chest is obtained. FINDINGS: Hyperinflation compatible COPD. Chronic deformities of the rib cage are seen. No interstit ial edema or artifact. Follow-up. Heart size normal. No overt failure. Tiny granuloma within the lung s suspected and stable. IMPRESSION: COPD.
[2022-04-28 10:10] LABS: C Reactive Protein 0.7 mg/dL (<1.0)
--- NOTE | 2022-04-28 10:15 | P.PN ---
Subjective Progress Note Date: 04/28/22 57-year-old female who presented to the emergency department on April 24, complaining of shortness of breath. The patient hasn't been feeling well for about 3 days prior to admission. The patient does have a history of underlying COPD, although she's never seen a lung doctor, or had pulmonary function test. She's been smoking for more than 40 years, at one to 2 packs a day according to her . The patient came in with shortness of breath, cough, wheezing, and chest tightness. She was coughing a small amount of phlegm up. It was mostly white. She also had fever, and body aches. The patient was evaluated in emergency room, and did test positive for both respiratory syncytial virus, and coronavirus. In addition, she had elevated troponins, and was started on IV heparin. She has no other significant past medical history, does not see a doctor on a regular basis. Currently, she is on 5 L nasal cannula. She is receiving IV heparin. She was previously on BiPAP, with settings of 10/5 and 50%. In the past, she did see Dr. Mica Michelle. White count 6.8, hemoglobin 12.9, hematocrit 38.3, and platelet count was normal. PTT was 56.3. Sodium 137, potassium 4.7, chlorides 109, CO2 23, BUN 8, and creatinine 0.49. Troponins were 0.115, 0.187, and 0.207. Urine was negative. The patient did test positive for both RSV and coronavirus. The patient's chest x-ray was consistent with COPD. She had hyperlucent lung carrasco, as well as air trapping, flat diaphragms, and a vertically hanging hard. Progress note dated 04/26/2022. The patient is seen today in room 367. The patient is on 4 L of oxygen. She's receiving IV heparin. The patient does have a diagnosis of coronavirus infection. She does have a history of underlying COPD, from years of tobacco use, at 2 packs a day. She apparently has been smoking for 40 years according to her and her . No new labs today other than a PTT of 32.4. Laboratory data from April 25 is reviewed. The patient also tested positive for respiratory syncytial virus as well as coronavirus infection. c 04/27/2022, the patient is still struggling with her breathing. She is bronchospastic and wheezy and she remains on 4 L of O2 nasal cannula. As stated earlier, the patient is on a combination of infection with RSV and Covid 19. She had received Covid 19 vaccination. Currently she is receiving IV Solu- Medrol, IV Remdesivir, and she is also on the Ventolin HFA 2 puffs 4 times a day. She is also on Symbicort 2 puffs twice a day. She is a chronic smoker and she is on a nicotine patch. She is slow to progress at this point in time. She is not utilizing the BiPAP and she is on O2 at 4 L nasal cannula 04/28/2022, the patient is doing better compared to yesterday. Less bronchospastic and wheezy, still on 4 L. A repeat chest x-ray was done and shows no evidence of any consolidation or airspace disease. It is consistent with COPD. She is completing her Covid 19 and RSV treatment. She remains on bronchodilators and systemic steroids. Her blood work was last checked on 04/27/2022. No recent blood work from today. Nevertheless, the chest x-ray is adequate for now. The patient remains on IV Solu-Medrol 60 mg every 6 hours. The patient is on Symbicort and Remdesivir Objective - Vital Signs Vital signs: Vital Signs Temp 97.4 F L 04/28/22 02:22 Pulse 75 04/28/22 02:22 Resp 18 04/28/22 02:22 BP 117/76 04/28/22 02:22 Pulse Ox 94 L 04/28/22 07:20 FiO2 50 04/24/22 19:43 Intake & Output 04/27/22 04/28/22 04/28/22 18:59 06:59 18:59 Intake Total 250 Balance 250 Intake: Intake, IV Titration 250 Amount Remdesivir 100 mg In 250 Sodium Chloride 0.9% 250 ml @ 250 mls/hr IVPB DAILY [facility] Rx#:[id number] Other: Voiding Method Bedside Commode Bedside Commode # Voids 3 1 # Bowel Movements 1 - Exam - Exam No acute distress, oriented 3. No audible wheezing, use of accessory muscles, or conversational dyspnea. The patient is currently on 4 L of oxygen. HEENT examination is grossly unremarkable. Neck supple. Full range of motion. No adenopathy thyromegaly or neck vein distention. Cardiovascular examination reveals regular rhythm rate. S1-S2 normal. No S3 or S4. No discernible murmur noted. Heart rate 100 bpm. Heart sounds are distant. Lungs reveal inspiratory and expiratory wheezes and rhonchi. No crackles. Breath sounds equal bilaterally but diminished throughout. Slight prolongation noted. Saturations are 95 %. Abdomen soft bowel sounds are heard. No masses or tenderness. Extremities are intact. No cyanosis clubbing or edema. Skin is without rash or lesion. Neurologic examination is brief but nonfocal. - Labs CBC & Chem 7: 04/27/22 09:11 04/27/22 09:11 Labs: Abnormal Lab Results - Last 24 Hours (Table) 04/27/22 04/27/22 04/27/22 Range/Units 11:22 16:34 20:24 POC Glucose (mg/dL) 160 H 258 H 145 H (70-110) mg/dL 04/28/22 Range/Units 06:05 POC Glucose (mg/dL) 139 H (70-110) mg/dL Assessment and Plan Plan: Assessment and Plan Acute hypoxemic respiratory failure, secondary to COPD exacerbation, triggered by respiratory syncytial virus, and coronavirus. No evidence of coronavirus associated pneumonia. Ongoing tobacco use with nicotine addiction. History of migraine cephalgia. Stress urinary incontinence. History of kidney stones. History of anxiety/depression. History of bipolar disorder. Plan Clinically improving Patient is less bronchospastic and symptomatically from her double infection with RSV and Covid 19 Continue bronchodilators and Symbicort Continue IV Solu-Medrol Continue IV Remdesivir per protocol Patient is currently on 4 L of O2 nasal cannula Repeat chest x-ray from today shows COPD without any airspace disease Nicotine patch We'll follow Noted the pro calcitonin level has been low.
[2022-04-28 11:16] LABS: Glucose,Whole Blood 136 mg/dL (70-110)
--- NOTE | 2022-04-28 15:42 | P.PN ---
Subjective Progress Note Date: 04/28/22 Principal diagnosis: Respiratory failure Hospital Course: Patient is a 57-year-old female with a PMH of COPD and tobacco abuse who presents to the emergency room with complaints of shortness of breath and cough. The patient reports that her symptoms started roughly 2 days ago with gradually worsening shortness of breath, cough productive of white and green phlegm, palpitations, and occasional chest pressure. She reported that her symptoms were worse than her prior episodes of COPD exacerbations. Upon arrival in the emergency department on 04/24/22, the patient was found to be hypoxic at SpO2 81% on room air, pulse 122, BP 185/103, respiratory rate 26, and temp 98.8F. Chest x-ray was consistent with COPD with EKG showing sinus tachycardia at 113 bpm. Laboratory evaluation was remarkable for troponin of 0.115, kim virus PCR an RSV positive, glucose 150, pH on VBG 7.25, pCO2 64, WBC count 13.6, and proBNP 203. The case was discussed in detail with the ED physician and patient was admitted under our services with consultation to pulmonology and cardiology at this time. Troponins trended overnight continuing to elevate from 0.115, 0.187 and 0.207. Urinalysis was obtained negative for blood or infection. Pro- calcitonin was negative at 0.08. Patient currently on steroids, bronchodilators, and remdesivir. Also on heparin drip for NSTEMI, now d iscontinued. Respiratory function improving. Subjective: Patient seen and examined at bedside. No acute events overnight. Currently on 2 L of oxygen. She claims that her shortness of breath has improved. Her cough is minimal, and nonproductive. She denies any abdominal pain, chest pain, alanis sea, vomiting, diarrhea, constipation, or urinary complaints. Pertinent positives and negatives as discussed above, a complete review of systems was performed and all other systems are negative. Vitals Signs Reviewed. General: nontoxic, in mild respiratory distress, appears at stated age Derm: warm, dry Head: atraumatic, normocephalic, symmetric Eyes: EOMI, no lid lag, anicteric sclera Mouth: no lip lesion, mucus membranes moist Cardiovascular: S1S2 reg, tachycardic, no murmur Lungs: Decreased breath sounds bilaterally, no accessory muscle use, supplemental oxygen Abdominal: soft, nontender to palpation, no guarding, no appreciable organomegaly Ext: no gross muscle atrophy, no edema, no contractures Neuro: CN II-XI grossly intact, no focal neuro deficits Psych: Alert, oriented, appropriate affect Assessment and Plan: Acute hypercapnic and hypoxic respiratory failure secondary to acute COPD exacerbation with COVID-19 and RSV infections COPD with acute exacerbation secondary to above COVID-19 pneumonia RSV infection Leukocytosis - likely steroid-induced Nicotine dependence -Continue steroids, bronchodilators -On Remdesivir -Nicotine patch provided and patient was counseled on smoking cessation. -Pulmonary following, appreciate further recommendations. Non-ST elevation MA, likely type II secondary to prolonged hypoxia Small pericardial effusion -Heparin drip now discontinued -Patient to continue aspirin, atorvastatin, and metoprolol. -Echocardiogram completed revealing EF of 50-55% with small pericardial effusion without reports of any cardiac tamponade physiology. -Patient to remain on telemetry monitoring. Hypertensive urgency -Blood pressures have improved, however patient continues to have intermittent episodes of uncontrolled hypertension with systolic pressures 170s. -Patient currently on metoprolol (increased today) and amlodipine DVT ppx: Subcu heparin Code status: Full code Anticipated discharge place: Home Anticipated discharge time: pending Clinical course Objective - Vital Signs Vital signs: Vital Signs Temp 97.8 F 04/28/22 12:00 Pulse 100 04/28/22 12:00 Resp 20 04/28/22 14:00 BP 187/81 04/28/22 12:00 Pulse Ox 94 L 04/28/22 12:00 FiO2 50 04/24/22 19:43 Intake & Output 04/27/22 04/28/22 04/28/22 18:59 06:59 18:59 Intake Total 250 Balance 250 Intake: Intake, IV Titration 250 Amount Remdesivir 100 mg In 250 Sodium Chloride 0.9% 250 ml @ 250 mls/hr IVPB DAILY [facility] Rx#:[id number] Other: Voiding Method Bedside Commode Bedside Commode Bedside Commode # Voids 3 1 3 # Bowel Movements 1 - Labs CBC & Chem 7: 04/27/22 09:11 04/27/22 09:11 Labs: Abnormal Lab Results - Last 24 Hours (Table) 04/27/22 04/27/22 04/28/22 Range/Units 16:34 20:24 06:05 POC Glucose (mg/dL) 258 H 145 H 139 H (70-110) mg/dL 04/28/22 Range/Units 11:14 POC Glucose (mg/dL) 136 H (70-110) mg/dL
[2022-04-28 16:58] LABS: Glucose,Whole Blood 154 mg/dL (70-110)
[2022-04-28] MEDS: PROCHLORPERAZINE INJ 10 MG/2 ML VIAL IVP PRN (17:12)
[2022-04-28] MEDS: ALPRAZolam 0.5 MG TAB PO PRN (18:06)
[2022-04-28] MEDS: QUEtiapine 25 MG TAB PO STA ×2 (18:44→20:12)
[2022-04-28 18:45] LABS: ABG Base Excess 13.6 mmol/L; ABG Oxygen Saturation 99.8 % (94-97); ABG PH 7.29 (7.35-7.45); ABG PO2 301 mmHg (83-108); ABG TCO2 43 mmol/L (19-24); Allen Test Performed? Yes
[2022-04-28] MEDS ORDERED: FUROSEMIDE 10 MG/ML 4 ML VIAL IV STA (18:52)
[2022-04-28 19:00] LABS: ABG HCO3 40 mmol/L (21-25); ABG PCO2 85 mmHg (35-45)
[2022-04-28] MEDS ORDERED: HALOPERIDOL LACTATE 5 MG/ML 1 ML VIAL IVP ONE (19:01)
[2022-04-28 20:06] LABS: Glucose,Whole Blood 235 mg/dL (70-110)
[2022-04-28] MEDS: ATORVASTATIN 80 MG TAB PO SCH (21:28)
[2022-04-28] MEDS: MELATONIN 3 MG TABLET PO PRN (23:45)
[2022-04-29] MEDS: ALPRAZolam 0.5 MG TAB PO PRN ×3 (02:45→20:22)
[2022-04-29] MEDS: methylPREDNISolone SOD SUCCI 125 MG/2 ML VIAL IV SCH ×4 (03:22→20:23)
[2022-04-29 06:29] LABS: Glucose,Whole Blood 159 mg/dL (70-110)
[2022-04-29] MEDS: SYMBICORT 160-4.5 MCG INHALER INHALATION SCH ×2 (07:31→19:42)
[2022-04-29] MEDS: ALBUTEROL HFA INHALER INHALATION SCH ×4 (07:31→19:42)
[2022-04-29 08:38] LABS: Basophils % (A) 0 %; Eosinophils % (A) 0 %; HCT 33.1 % (34.0-46.0); Lymphocytes # (A) 1.2 k/uL (1.0-4.8); Lymphocytes % (A) 14 %; MCH 30.7 pg (25.0-35.0); MCHC 33.3 g/dL (31.0-37.0); MCV 92.2 fL (80.0-100.0); Mean Platelet Volume 8.8; Monocytes # (A) 0.3 k/uL (0-1.0); Monocytes % (A) 3 %; Neutrophils % (A) 80 %; Platelet Count 264 k/uL (150-450); RDW 13.1 % (11.5-15.5); WBC 8.7 k/uL (3.8-10.6)
[2022-04-29 08:39] LABS: African American GFR (CKD) >90 (>60 ml/min/1.73 sqM); Blood Urea Nitrogen 38 mg/dL (7-17); Calcium 8.8 mg/dL (8.4-10.2); Chloride 89 mmol/L (98-107); Glucose 145 mg/dL (74-99); Non-African American GFR(CKD) >90 (>60 ml/min/1.73 sqM); Sodium 135 mmol/L (137-145)
[2022-04-29 08:51] LABS: Anion Gap 4 mmol/L
[2022-04-29 09:24] LABS: Carbon Dioxide 42 mmol/L (22-30)
[2022-04-29] MEDS: METOPROLOL SUCCINATE (ER) 50 MG TAB.ER.24H PO SCH (09:56)
[2022-04-29] MEDS: HEPARIN SODIUM,PORCINE/PF 5,000 UNIT/0.5 ML SYRINGE SQ SCH ×3 (09:56→23:16)
[2022-04-29] MEDS: ASPIRIN 81 MG PO SCH (09:56)
[2022-04-29] MEDS: amLODIPine 5 MG TAB PO SCH (09:56)
[2022-04-29] MEDS: NICOTINE 21MG/24HR PATCH TRANSDERM SCH (09:57)
--- NOTE | 2022-04-29 10:11 | P.PN ---
Subjective Progress Note Date: 04/29/22 57-year-old female who presented to the emergency department on April 24, complaining of shortness of breath. The patient hasn't been feeling well for about 3 days prior to admission. The patient does have a history of underlying COPD, although she's never seen a lung doctor, or had pulmonary function test. She's been smoking for more than 40 years, at one to 2 packs a day according to her . The patient came in with shortness of breath, cough, wheezing, and chest tightness. She was coughing a small amount of phlegm up. It was mostly white. She also had fever, and body aches. The patient was evaluated in emergency room, and did test positive for both respiratory syncytial virus, and coronavirus. In addition, she had elevated troponins, and was started on IV heparin. She has no other significant past medical history, does not see a doctor on a regular basis. Currently, she is on 5 L nasal cannula. She is receiving IV heparin. She was previously on BiPAP, with settings of 10/5 and 50%. In the past, she did see Dr. Mica Michelle. White count 6.8, hemoglobin 12.9, hematocrit 38.3, and platelet count was normal. PTT was 56.3. Sodium 137, potassium 4.7, chlorides 109, CO2 23, BUN 8, and creatinine 0.49. Troponins were 0.115, 0.187, and 0.207. Urine was negative. The patient did test positive for both RSV and coronavirus. The patient's chest x-ray was consistent with COPD. She had hyperlucent lung carrasco, as well as air trapping, flat diaphragms, and a vertically hanging hard. Progress note dated 04/26/2022. The patient is seen today in room 367. The patient is on 4 L of oxygen. She's receiving IV heparin. The patient does have a diagnosis of coronavirus infection. She does have a history of underlying COPD, from years of tobacco use, at 2 packs a day. She apparently has been smoking for 40 years according to her and her . No new labs today other than a PTT of 32.4. Laboratory data from April 25 is reviewed. The patient also tested positive for respiratory syncytial virus as well as coronavirus infection. c 04/27/2022, the patient is still struggling with her breathing. She is bronchospastic and wheezy and she remains on 4 L of O2 nasal cannula. As stated earlier, the patient is on a combination of infection with RSV and Covid 19. She had received Covid 19 vaccination. Currently she is receiving IV Solu- Medrol, IV Remdesivir, and she is also on the Ventolin HFA 2 puffs 4 times a day. She is also on Symbicort 2 puffs twice a day. She is a chronic smoker and she is on a nicotine patch. She is slow to progress at this point in time. She is not utilizing the BiPAP and she is on O2 at 4 L nasal cannula 04/28/2022, the patient is doing better compared to yesterday. Less bronchospastic and wheezy, still on 4 L. A repeat chest x-ray was done and shows no evidence of any consolidation or airspace disease. It is consistent with COPD. She is completing her Covid 19 and RSV treatment. She remains on bronchodilators and systemic steroids. Her blood work was last checked on 04/27/2022. No recent blood work from today. Nevertheless, the chest x-ray is adequate for now. The patient remains on IV Solu-Medrol 60 mg every 6 hours. The patient is on Symbicort and Remdesivir 04/29 2022, I'm seeing the patient for a follow-up. This patient was quite short of breath due to a combination of Covid 19 and RSV infection. She was bronchospastic and wheezy and she was being treated with a combination of b ronchodilators, steroids and she was also on Remdesivir she is completing her course and she is taken her last dose today. The patient overnight became quite short of breath and lethargic. At that point, blood gas was done that showed an acute on chronic respiratory acidosis. The blood gas showed a pH of 7.29 with a pCO2 of 85 and a pO2 of 301 and this was not identified on 100%. At that point, the patient was placed on a BiPAP at a pressure of 10/5 cm of water and she stayed on the BiPAP throughout the night. The patient this morning's an FiO2 of 35%. Pulse ox is 99%. She is obtaining a tidal volume of 400. Respiratory rate is around 24. Minute ventilation is low. I took her off the BiPAP and put her back on oxygen at 2 L and her current pulse ox is 99% pH she seems to be quite comfortable. At times she gets panicky and agitated and restless and for that reason she has Xanax. Her serum sodium level is at 135, bicarbonate of 42 with a BUN of 38 and a creatinine of 0.5. Chest x-ray was done yesterday showed no significant abnormalities. Objective - Vital Signs Vital signs: Vital Signs Temp 97.5 F L 04/29/22 03:28 Pulse 97 04/29/22 03:28 Resp 16 04/29/22 03:28 BP 115/74 04/29/22 03:28 Pulse Ox 97 04/29/22 07:33 FiO2 35 04/29/22 07:33 Intake & Output 04/28/22 04/29/22 04/29/22 18:59 06:59 18:59 Intake Total 250 Output Total 1250 Balance -1000 Intake: Oral 250 Output: Urine 1250 Other: Voiding Method Bedside Commode Indwelling Catheter # Voids 3 - Exam - Exam No acute distress, oriented 3. No audible wheezing, use of accessory muscles, or conversational dyspnea. The patient is currently on 2 L of oxygen. HEENT examination is grossly unremarkable. Neck supple. Full range of motion. No adenopathy thyromegaly or neck vein distention. Cardiovascular examination reveals regular rhythm rate. S1-S2 normal. No S3 or S4. No discernible murmur noted. Heart rate 100 bpm. Heart sounds are distant. Lungs reveal inspiratory and expiratory wheezes and rhonchi. No crackles. Breath sounds equal bilaterally but diminished throughout. Slight prolongation noted. Saturations are 95 %. Abdomen soft bowel sounds are heard. No masses or tenderness. Extremities are intact. No cyanosis clubbing or edema. Skin is without rash or lesion. Neurologic examination is brief but nonfocal. - Labs CBC & Chem 7: 04/29/22 07:49 04/29/22 07:49 Labs: Abnormal Lab Results - Last 24 Hours (Table) 04/28/22 04/28/22 04/28/22 Range/Units 11:14 16:56 18:40 RBC (3.80-5.40) m/uL Hgb (11.4-16.0) gm/dL Hct (34.0-46.0) % ABG pH 7.29 L (7.35-7.45) ABG pCO2 85 H* (35-45) mmHg ABG pO2 301 H (83-108) mmHg ABG HCO3 40 H* (21-25) mmol/L ABG Total CO2 43 H (19-24) mmol/L ABG O2 Saturation 99.8 H (94-97) % Sodium (137-145) mmol/L Chloride (98-107) mmol/L Carbon Dioxide (22-30) mmol/L BUN (7-17) mg/dL Glucose (74-99) mg/dL POC Glucose (mg/dL) 136 H 154 H (70-110) mg/dL 04/28/22 04/29/22 04/29/22 Range/Units 20:05 06:27 07:49 RBC 3.60 L (3.80-5.40) m/uL Hgb 11.0 L (11.4-16.0) gm/dL Hct 33.1 L (34.0-46.0) % ABG pH (7.35-7.45) ABG pCO2 (35-45) mmHg ABG pO2 (83-108) mmHg ABG HCO3 (21-25) mmol/L ABG Total CO2 (19-24) mmol/L ABG O2 Saturation (94-97) % Sodium (137-145) mmol/L Chloride (98-107) mmol/L Carbon Dioxide (22-30) mmol/L BUN (7-17) mg/dL Glucose (74-99) mg/dL POC Glucose (mg/dL) 235 H 159 H (70-110) mg/dL 04/29/22 Range/Units 07:49 RBC (3.80-5.40) m/uL Hgb (11.4-16.0) gm/dL Hct (34.0-46.0) % ABG pH (7.35-7.45) ABG pCO2 (35-45) mmHg ABG pO2 (83-108) mmHg ABG HCO3 (21-25) mmol/L ABG Total CO2 (19-24) mmol/L ABG O2 Saturation (94-97) % Sodium 135 L (137-145) mmol/L Chloride 89 L (98-107) mmol/L Carbon Dioxide 42 H* (22-30) mmol/L BUN 38 H (7-17) mg/dL Glucose 145 H (74-99) mg/dL POC Glucose (mg/dL) (70-110) mg/dL Assessment and Plan Plan: Assessment and Plan Acute hypoxemic respiratory failure, secondary to COPD exacerbation, triggered by respiratory syncytial virus, and coronavirus.. The patient developed worsening shortness of breath overnight with acute on chronic hypercapnic respiratory failure requiring BiPAP. She was on BiPAP throughout the night and currently she is on oxygen nasal cannula 2 L. Chest x-ray is free of any consolidation. Breath sounds are quite diminished and she continues to have a congestive cough. She is completing a course of Covid 19 treatment with Remdesivir No evidence of coronavirus associated pneumonia. Ongoing tobacco use with nicotine addiction. History of migraine cephalgia. Stress urinary incontinence. History of kidney stones. History of anxiety/depression. History of bipolar disorder. Plan Clinically stable. This should be able to discontinue the BiPAP and uses on and off during the day and continuous at nighttime. I took her off the BiPAP this morning and put on 2 L nasal cannula. We'll obtain another blood gas in 30 minutes while her being on 2 L nasal c annula Patient had a double infection with RSV and Covid 19 Continue bronchodilators and Symbicort Continue IV Solu-Medrol Continue IV Remdesivir per protocol, and she is completing the course and she is 5 out of 5 Patient is currently on 2 L of O2 nasal cannula Repeat chest x-ray from today shows COPD without any airspace disease and this was done yesterday Nicotine patch We'll follow Noted the pro calcitonin level has been low. We'll continue to follow.
[2022-04-29 10:16] LABS: VBG PH 7.6 (7.31-7.41)
[2022-04-29 11:06] LABS: ABG Base Excess 23.2 mmol/L; ABG Oxygen Saturation 89.2 % (94-97); ABG PCO2 57 mmHg (35-45); ABG PH 7.52 (7.35-7.45); ABG TCO2 48 mmol/L (19-24); Allen Test Performed? Yes
[2022-04-29 11:09] LABS: ABG HCO3 46 mmol/L (21-25); ABG PO2 52 mmHg (83-108)
[2022-04-29] MEDS: REMDESIVIR 100 MG in SODIUM CHLORIDE 0.9% 250 ML IVPB SCH (11:16)
[2022-04-29 11:54] LABS: Glucose,Whole Blood 151 mg/dL (70-110)
--- NOTE | 2022-04-29 12:07 | P.PN ---
Subjective Progress Note Date: 04/29/22 Principal diagnosis: Respiratory failure Hospital Course: Patient is a 57-year-old female with a PMH of COPD and tobacco abuse who presents to the emergency room with complaints of shortness of breath and cough. The patient reports that her symptoms started roughly 2 days ago with gradually worsening shortness of breath, cough productive of white and green phlegm, palpitations, and occasional chest pressure. She reported that her symptoms were worse than her prior episodes of COPD exacerbations. Upon arrival in the emergency department on 04/24/22, the patient was found to be hypoxic at SpO2 81% on room air, pulse 122, BP 185/103, respiratory rate 26, and temp 98.8F. Chest x-ray was consistent with COPD with EKG showing sinus tachycardia at 113 bpm. Laboratory evaluation was remarkable for troponin of 0.115, kim virus PCR an RSV positive, glucose 150, pH on VBG 7.25, pCO2 64, WBC count 13.6, and proBNP 203. The case was discussed in detail with the ED physician and patient was admitted under our services with consultation to pulmonology and cardiology at this time. Troponins trended overnight continuing to elevate from 0.115, 0.187 and 0.207. Urinalysis was obtained negative for blood or infection. Pro- calcitonin was negative at 0.08. Patient currently on steroids, bronchodilators, and remdesivir. Also on heparin drip for NSTEMI, now d iscontinued. Patient was hypercapnic, was briefly on BiPAP. Respiratory function stable. Subjective: Patient seen and examined at bedside. Overnight, patient was more confused. Laboratory workup consistent with hypercapnic respiratory failure. Likely had CO2 narcosis. Patient given antipsychotic, started on BiPAP. Patient now better, Currently on 2 L of oxygen. She denies any abdominal pain, chest pain, nausea, vomiting, diarrhea, constipation, or urinary complaints. Pertinent positives and negatives as discussed above, a complete review of systems was performed and all other systems are negative. Vitals Signs Reviewed. General: nontoxic, in mild respiratory distress, appears at stated age Derm: warm, dry Head: atraumatic, normocephalic, symmetric Eyes: EOMI, no lid lag, anicteric sclera Mouth: no lip lesion, mucus membranes moist Cardiovascular: S1S2 reg, tachycardic, no murmur Lungs: Decreased breath sounds bilaterally, no accessory muscle use, supplemental oxygen Abdominal: soft, nontender to palpation, no guarding, no appreciable organomegaly Ext: no gross muscle atrophy, no edema, no contractures Neuro: CN II-XI grossly intact, no focal neuro deficits Psych: Alert, oriented, appropriate affect Assessment and Plan: Acute hypercapnic and hypoxic respiratory failure secondary to acute COPD exacerbation with COVID-19 and RSV infections COPD with acute exacerbation secondary to above COVID-19 pneumonia RSV infection Leukocytosis - likely steroid-induced Nicotine dependence -Continue steroids, bronchodilators -On Remdesivir -Nicotine patch provided and patient was counseled on smoking cessation. -Pulmonary following, appreciate further recommendations. Respiratory and metabolic alkalosis -Given Diamox per pulmonary -She did receive a dose of diuretics last night Non-ST elevation IL, likely type II secondary to prolonged hypoxia Small pericardial effusion -Heparin drip now discontinued -Patient to continue aspirin, atorvastatin, and metoprolol. -Echocardiogram completed revealing EF of 50-55% with small pericardial effusion without reports of any cardiac tamponade physiology. -Patient to remain on telemetry monitoring. Hypertensive urgency -Blood pressures have improved, however patient continues to have intermittent episodes of uncontrolled hypertension with systolic pressures 170s. -Patient currently on metoprolol and amlodipine DVT ppx: Subcu heparin Code status: Full code Anticipated discharge place: Home Anticipated discharge time: pending Clinical course Objective - Vital Signs Vital signs: Vital Signs Temp 97.1 F L 04/29/22 08:00 Pulse 99 04/29/22 11:48 Resp 22 04/29/22 11:48 BP 135/84 04/29/22 11:48 Pulse Ox 93 L 04/29/22 11:49 FiO2 35 04/29/22 08:00 Intake & Output 04/28/22 04/29/22 04/29/22 18:59 06:59 18:59 Intake Total 250 Output Total 1250 Balance -1000 Intake: Oral 250 Output: Urine 1250 Other: Voiding Method Bedside Commode Indwelling Catheter Indwelling Catheter # Voids 3 - Labs CBC & Chem 7: 04/29/22 07:49 04/29/22 07:49 Labs: Abnormal Lab Results - Last 24 Hours (Table) 04/28/22 04/28/22 04/28/22 Range/Units 16:56 18:40 20:05 RBC (3.80-5.40) m/uL Hgb (11.4-16.0) gm/dL Hct (34.0-46.0) % ABG pH 7.29 L (7.35-7.45) ABG pCO2 85 H* (35-45) mmHg ABG pO2 301 H (83-108) mmHg ABG HCO3 40 H* (21-25) mmol/L ABG Total CO2 43 H (19-24) mmol/L ABG O2 Saturation 99.8 H (94-97) % VBG pH (7.31-7.41) VBG HCO3 (24-28) mmol/L Sodium (137-145) mmol/L Chloride (98-107) mmol/L Carbon Dioxide (22-30) mmol/L BUN (7-17) mg/dL Glucose (74-99) mg/dL POC Glucose (mg/dL) 154 H 235 H (70-110) mg/dL 04/29/22 04/29/22 04/29/22 Range/Units 06:27 07:49 07:49 RBC 3.60 L (3.80-5.40) m/uL Hgb 11.0 L (11.4-16.0) gm/dL Hct 33.1 L (34.0-46.0) % ABG pH (7.35-7.45) ABG pCO2 (35-45) mmHg ABG pO2 (83-108) mmHg ABG HCO3 (21-25) mmol/L ABG Total CO2 (19-24) mmol/L ABG O2 Saturation (94-97) % VBG pH 7.60 H* (7.31-7.41) VBG HCO3 41 H (24-28) mmol/L Sodium (137-145) mmol/L Chloride (98-107) mmol/L Carbon Dioxide (22-30) mmol/L BUN (7-17) mg/dL Glucose (74-99) mg/dL POC Glucose (mg/dL) 159 H (70-110) mg/dL 04/29/22 04/29/22 04/29/22 Range/Units 07:49 11:01 11:52 RBC (3.80-5.40) m/uL Hgb (11.4-16.0) gm/dL Hct (34.0-46.0) % ABG pH 7.52 H (7.35-7.45) ABG pCO2 57 H (35-45) mmHg ABG pO2 52 L* (83-108) mmHg ABG HCO3 46 H* (21-25) mmol/L ABG Total CO2 48 H (19-24) mmol/L ABG O2 Saturation 89.2 L (94-97) % VBG pH (7.31-7.41) VBG HCO3 (24-28) mmol/L Sodium 135 L (137-145) mmol/L Chloride 89 L (98-107) mmol/L Carbon Dioxide 42 H* (22-30) mmol/L BUN 38 H (7-17) mg/dL Glucose 145 H (74-99) mg/dL POC Glucose (mg/dL) 151 H (70-110) mg/dL
[2022-04-29] MEDS: acetaZOLAMIDE 250 MG TAB PO SCH ×2 (13:20→20:27)
[2022-04-29 14:24] VITALS: BMI 23.8
[2022-04-29] MEDS: HYDROcodone/APAP 5-325MG 1 EACH TAB PO PRN ×2 (16:35→20:22)
[2022-04-29 16:56] LABS: Glucose,Whole Blood 176 mg/dL (70-110)
[2022-04-29 20:05] LABS: Glucose,Whole Blood 175 mg/dL (70-110)
[2022-04-29] MEDS: MELATONIN 3 MG TABLET PO PRN (20:22)
[2022-04-29] MEDS: ATORVASTATIN 80 MG TAB PO SCH (20:27)
[2022-04-30] MEDS: HYDROcodone/APAP 5-325MG 1 EACH TAB PO PRN (02:13)
[2022-04-30 06:14] LABS: Glucose,Whole Blood 199 mg/dL (70-110)
[2022-04-30] MEDS: methylPREDNISolone SOD SUCCI 125 MG/2 ML VIAL IV SCH ×4 (06:41→20:07)
[2022-04-30] MEDS: ALBUTEROL HFA INHALER INHALATION SCH ×4 (07:16→19:23)
[2022-04-30] MEDS: SYMBICORT 160-4.5 MCG INHALER INHALATION SCH ×2 (07:16→19:24)
[2022-04-30] MEDS: HEPARIN SODIUM,PORCINE/PF 5,000 UNIT/0.5 ML SYRINGE SQ SCH ×3 (08:56→23:23)
[2022-04-30] MEDS: NICOTINE 21MG/24HR PATCH TRANSDERM SCH (08:56)
[2022-04-30] MEDS: ALPRAZolam 0.5 MG TAB PO PRN (08:56)
[2022-04-30] MEDS: amLODIPine 5 MG TAB PO SCH (08:56)
[2022-04-30] MEDS: ASPIRIN 81 MG PO SCH (08:56)
[2022-04-30] MEDS: METOPROLOL SUCCINATE (ER) 50 MG TAB.ER.24H PO SCH (08:56)
[2022-04-30 10:41] LABS: VBG PH 7.54 (7.31-7.41)
[2022-04-30 11:02] LABS: Calcium 9.3 mg/dL (8.4-10.2); Potassium 3.5 mmol/L (3.5-5.1)
[2022-04-30 11:31] LABS: Glucose,Whole Blood 187 mg/dL (70-110)
--- NOTE | 2022-04-30 11:51 | P.PN ---
Subjective Progress Note Date: 04/30/22 Principal diagnosis: Respiratory failure Hospital Course: Patient is a 57-year-old female with a PMH of COPD and tobacco abuse who presents to the emergency room with complaints of shortness of breath and cough. The patient reports that her symptoms started roughly 2 days ago with gradually worsening shortness of breath, cough productive of white and green phlegm, palpitations, and occasional chest pressure. She reported that her symptoms were worse than her prior episodes of COPD exacerbations. Upon arrival in the emergency department on 04/24/22, the patient was found to be hypoxic at SpO2 81% on room air, pulse 122, BP 185/103, respiratory rate 26, and temp 98.8F. Chest x-ray was consistent with COPD with EKG showing sinus tachycardia at 113 bpm. Laboratory evaluation was remarkable for troponin of 0.115, kim virus PCR an RSV positive, glucose 150, pH on VBG 7.25, pCO2 64, WBC count 13.6, and proBNP 203. The case was discussed in detail with the ED physician and patient was admitted under our services with consultation to pulmonology and cardiology at this time. Troponins trended overnight continuing to elevate from 0.115, 0.187 and 0.207. Urinalysis was obtained negative for blood or infection. Pro- calcitonin was negative at 0.08. Patient currently on steroids, bronchodilators, and remdesivir. Also on heparin drip for NSTEMI, now d iscontinued. Patient was hypercapnic, was briefly on BiPAP. Respiratory function stable. Subjective: Patient seen and examined at bedside. No acute events overnight. Mentation has improved. Currently on 2 L of oxygen. She denies any abdominal pain, chest pain, nausea, vomiting, diarrhea, constipation, or urinary complaints. Pertinent positives and negatives as discussed above, a complete review of systems was performed and all other systems are negative. Vitals Signs Reviewed. General: nontoxic, no distress, appears at stated age Derm: warm, dry Head: atraumatic, normocephalic, symmetric Eyes: EOMI, no lid lag, anicteric sclera Mouth: no lip lesion, mucus membranes moist Cardiovascular: S1S2 reg, no murmur Lungs: Decreased breath sounds bilaterally, no accessory muscle use, s upplemental oxygen Abdominal: soft, nontender to palpation, no guarding, no appreciable organomegaly Ext: no gross muscle atrophy, no edema, no contractures Neuro: CN II-XI grossly intact, no focal neuro deficits Psych: Alert, oriented, appropriate affect Assessment and Plan: Acute hypercapnic and hypoxic respiratory failure secondary to acute COPD exacerbation with COVID-19 and RSV infections COPD with acute exacerbation secondary to above COVID-19 pneumonia RSV infection Leukocytosis - likely steroid-induced Nicotine dependence -Continue steroids, bronchodilators -Remdesivir (completed) -Nicotine patch provided and patient was counseled on smoking cessation. -Pulmonary following, appreciate further recommendations. metabolic alkalosis -Given Diamox per pulmonary once Non-ST elevation IL, likely type II secondary to prolonged hypoxia Small pericardial effusion -Heparin drip now discontinued -Patient to continue aspirin, atorvastatin, and metoprolol. -Echocardiogram completed revealing EF of 50-55% with small pericardial effusion without reports of any cardiac tamponade physiology. -Patient to remain on telemetry monitoring. Hypertensive urgency -Blood pressures have improved, however patient continues to have intermittent episodes of uncontrolled hypertension with systolic pressures 170s. -Patient currently on metoprolol and amlodipine DVT ppx: Subcu heparin Code status: Full code Anticipated discharge place: Home Anticipated discharge time: pending Clinical course Objective - Vital Signs Vital signs: Vital Signs Temp 97.6 F 04/30/22 08:53 Pulse 103 H 04/30/22 08:53 Resp 18 04/30/22 08:53 BP 116/78 04/30/22 08:53 Pulse Ox 99 04/30/22 08:53 FiO2 35 04/29/22 15:23 Intake & Output 04/29/22 04/30/22 04/30/22 18:59 06:59 18:59 Intake Total 10 240 Output Total 400 800 Balance -390 -800 240 Weight 58.967 kg Intake: IV 10 Invasive Line 5 10 Oral 240 Output: Urine 400 800 Other: Voiding Method Indwelling Catheter Indwelling Catheter Indwelling Catheter # Bowel Movements 1 - Labs CBC & Chem 7: 04/29/22 07:49 04/30/22 10:17 Labs: Abnormal Lab Results - Last 24 Hours (Table) 04/29/22 04/29/22 04/29/22 Range/Units 11:52 16:54 17:56 VBG pH (7.31-7.41) VBG HCO3 (24-28) mmol/L Chloride (98-107) mmol/L Carbon Dioxide (22-30) mmol/L BUN (7-17) mg/dL Glucose (74-99) mg/dL POC Glucose (mg/dL) 151 H 176 H (70-110) mg/dL Stool Occult Blood Positive H (Negative) 04/29/22 04/30/22 04/30/22 Range/Units 19:58 06:13 10:17 VBG pH 7.54 H (7.31-7.41) VBG HCO3 32 H (24-28) mmol/L Chloride (98-107) mmol/L Carbon Dioxide (22-30) mmol/L BUN (7-17) mg/dL Glucose (74-99) mg/dL POC Glucose (mg/dL) 175 H 199 H (70-110) mg/dL Stool Occult Blood (Negative) 04/30/22 04/30/22 Range/Units 10:17 11:29 VBG pH (7.31-7.41) VBG HCO3 (24-28) mmol/L Chloride 94 L (98-107) mmol/L Carbon Dioxide 37 H (22-30) mmol/L BUN 54 H (7-17) mg/dL Glucose 173 H (74-99) mg/dL POC Glucose (mg/dL) 187 H (70-110) mg/dL Stool Occult Blood (Negative)
--- NOTE | 2022-04-30 11:59 | P.PN ---
Subjective Progress Note Date: 04/30/22 57-year-old female who presented to the emergency department on April 24, complaining of shortness of breath. The patient hasn't been feeling well for about 3 days prior to admission. The patient does have a history of underlying COPD, although she's never seen a lung doctor, or had pulmonary function test. She's been smoking for more than 40 years, at one to 2 packs a day according to her . The patient came in with shortness of breath, cough, wheezing, and chest tightness. She was coughing a small amount of phlegm up. It was mostly white. She also had fever, and body aches. The patient was evaluated in emergency room, and did test positive for both respiratory syncytial virus, and coronavirus. In addition, she had elevated troponins, and was started on IV heparin. She has no other significant past medical history, does not see a doctor on a regular basis. Currently, she is on 5 L nasal cannula. She is receiving IV heparin. She was previously on BiPAP, with settings of 10/5 and 50%. In the past, she did see Dr. Mica Michelle. White count 6.8, hemoglobin 12.9, hematocrit 38.3, and platelet count was normal. PTT was 56.3. Sodium 137, potassium 4.7, chlorides 109, CO2 23, BUN 8, and creatinine 0.49. Troponins were 0.115, 0.187, and 0.207. Urine was negative. The patient did test positive for both RSV and coronavirus. The patient's chest x-ray was consistent with COPD. She had hyperlucent lung carrasco, as well as air trapping, flat diaphragms, and a vertically hanging hard. Progress note dated 04/26/2022. The patient is seen today in room 367. The patient is on 4 L of oxygen. She's receiving IV heparin. The patient does have a diagnosis of coronavirus infection. She does have a history of underlying COPD, from years of tobacco use, at 2 packs a day. She apparently has been smoking for 40 years according to her and her . No new labs today other than a PTT of 32.4. Laboratory data from April 25 is reviewed. The patient also tested positive for respiratory syncytial virus as well as coronavirus infection. c 04/27/2022, the patient is still struggling with her breathing. She is bronchospastic and wheezy and she remains on 4 L of O2 nasal cannula. As stated earlier, the patient is on a combination of infection with RSV and Covid 19. She had received Covid 19 vaccination. Currently she is receiving IV Solu- Medrol, IV Remdesivir, and she is also on the Ventolin HFA 2 puffs 4 times a day. She is also on Symbicort 2 puffs twice a day. She is a chronic smoker and she is on a nicotine patch. She is slow to progress at this point in time. She is not utilizing the BiPAP and she is on O2 at 4 L nasal cannula 04/28/2022, the patient is doing better compared to yesterday. Less bronchospastic and wheezy, still on 4 L. A repeat chest x-ray was done and shows no evidence of any consolidation or airspace disease. It is consistent with COPD. She is completing her Covid 19 and RSV treatment. She remains on bronchodilators and systemic steroids. Her blood work was last checked on 04/27/2022. No recent blood work from today. Nevertheless, the chest x-ray is adequate for now. The patient remains on IV Solu-Medrol 60 mg every 6 hours. The patient is on Symbicort and Remdesivir 04/29 2022, I'm seeing the patient for a follow-up. This patient was quite short of breath due to a combination of Covid 19 and RSV infection. She was bronchospastic and wheezy and she was being treated with a combination of b ronchodilators, steroids and she was also on Remdesivir she is completing her course and she is taken her last dose today. The patient overnight became quite short of breath and lethargic. At that point, blood gas was done that showed an acute on chronic respiratory acidosis. The blood gas showed a pH of 7.29 with a pCO2 of 85 and a pO2 of 301 and this was not identified on 100%. At that point, the patient was placed on a BiPAP at a pressure of 10/5 cm of water and she stayed on the BiPAP throughout the night. The patient this morning's an FiO2 of 35%. Pulse ox is 99%. She is obtaining a tidal volume of 400. Respiratory rate is around 24. Minute ventilation is low. I took her off the BiPAP and put her back on oxygen at 2 L and her current pulse ox is 99% pH she seems to be quite comfortable. At times she gets panicky and agitated and restless and for that reason she has Xanax. Her serum sodium level is at 135, bicarbonate of 42 with a BUN of 38 and a creatinine of 0.5. Chest x-ray was done yesterday showed no significant abnormalities. 04/30/2022, the patient is feeling much better. She is less short of breath. Breathing is nonlabored and she is able to speak longer sentences. She is still using the BiPAP on and off during the day and currently she is on oxygen at 2 L nasal cannula. She remains on bronchodilators. She remains on steroids.Most recent most recent blood gas from yesterday showed a pH of 7.52 with a pCO2 57 and pO2 of 52 and this was done on FiO2 of 28%. On today's blood work, serum bicarb is down to 37, sodium is at 138, BUN is 54 with a creatinine of 0.5. The patient remains on DuoNeb nebulized treatments [id number]. The patient is on Symbicort. The patient is on IV Solu-Medrol 60 mg every 6 hours. She has also on nicotine patch. She completed Remdesivir Objective - Vital Signs Vital signs: Vital Signs Temp 97.6 F 04/30/22 08:53 Pulse 103 H 04/30/22 08:53 Resp 18 04/30/22 08:53 BP 116/78 04/30/22 08:53 Pulse Ox 99 04/30/22 08:53 FiO2 35 04/29/22 15:23 Intake & Output 04/29/22 04/30/22 04/30/22 18:59 06:59 18:59 Intake Total 10 240 Output Total 400 800 Balance -390 -800 240 Weight 58.967 kg Intake: IV 10 Invasive Line 5 10 Oral 240 Output: Urine 400 800 Other: Voiding Method Indwelling Catheter Indwelling Catheter Indwelling Catheter # Bowel Movements 1 - Exam - Exam No acute distress, oriented 3. No audible wheezing, use of accessory muscles, or conversational dyspnea. The patient is currently on 2 L of oxygen. HEENT examination is grossly unremarkable. Neck supple. Full range of motion. No adenopathy thyromegaly or neck vein distention. Cardiovascular examination reveals regular rhythm rate. S1-S2 normal. No S3 or S4. No discernible murmur noted. Heart rate 100 bpm. Heart sounds are distant. Lungs reveal inspiratory and expiratory wheezes and rhonchi. No crackles. Breath sounds equal bilaterally but diminished throughout. Slight prolongation noted. Saturations are 95 %. Abdomen soft bowel sounds are heard. No masses or tenderness. Extremities are intact. No cyanosis clubbing or edema. Skin is without rash or lesion. Neurologic examination is brief but nonfocal. - Labs CBC & Chem 7: 04/29/22 07:49 04/30/22 10:17 Labs: Abnormal Lab Results - Last 24 Hours (Table) 04/29/22 04/29/22 04/29/22 Range/Units 11:52 16:54 17:56 VBG pH (7.31-7.41) VBG HCO3 (24-28) mmol/L Chloride (98-107) mmol/L Carbon Dioxide (22-30) mmol/L BUN (7-17) mg/dL Glucose (74-99) mg/dL POC Glucose (mg/dL) 151 H 176 H (70-110) mg/dL Stool Occult Blood Positive H (Negative) 04/29/22 04/30/22 04/30/22 Range/Units 19:58 06:13 10:17 VBG pH 7.54 H (7.31-7.41) VBG HCO3 32 H (24-28) mmol/L Chloride (98-107) mmol/L Carbon Dioxide (22-30) mmol/L BUN (7-17) mg/dL Glucose (74-99) mg/dL POC Glucose (mg/dL) 175 H 199 H (70-110) mg/dL Stool Occult Blood (Negative) 04/30/22 04/30/22 Range/Units 10:17 11:29 VBG pH (7.31-7.41) VBG HCO3 (24-28) mmol/L Chloride 94 L (98-107) mmol/L Carbon Dioxide 37 H (22-30) mmol/L BUN 54 H (7-17) mg/dL Glucose 173 H (74-99) mg/dL POC Glucose (mg/dL) 187 H (70-110) mg/dL Stool Occult Blood (Negative) Assessment and Plan Plan: Assessment and Plan Acute hypoxemic respiratory failure, secondary to COPD exacerbation, triggered by respiratory syncytial virus, and coronavirus.. The patient developed worsening shortness of breath overnight with acute on chronic hypercapnic respiratory failure requiring BiPAP. She is completing a course of Covid 19 treatment with Remdesivir treatment is completed. The patient is currently off BiPAP and the patient is improving. She is using on and off BiPAP during the day. She has a weaned down to 2 L of oxygen by nasal cannula. No evidence of coronavirus associated pneumonia. Ongoing tobacco use with nicotine addiction. History of migraine cephalgia. Stress urinary incontinence. History of kidney stones. History of anxiety/depression. History of bipolar disorder. Plan Clinically improving Continue use of incentive spirometer Clinically stable. This should be able to discontinue the BiPAP and uses on and off during the day and continuous at nighttime. I took her off the BiPAP this morning and put on 2 L nasal cannula. Blood gases were noted Patient had a double infection with RSV and Covid 19 Continue bronchodilators and Symbicort Continue IV Solu-Medrol Continue IV Remdesivir per protocol, and she is completed course of treatment Patient is currently on 2 L of O2 nasal cannula Repeat chest x-ray from today shows COPD without any airspace disease and this was done yesterday Nicotine patch We'll follow Noted the pro calcitonin level has been low. We'll continue to follow.
[2022-04-30 16:32] LABS: Glucose,Whole Blood 193 mg/dL (70-110)
[2022-04-30 18:38] LABS: HCT 34.4 % (34.0-46.0); HGB 11.6 gm/dL (11.4-16.0); MCH 31.8 pg (25.0-35.0); MCHC 33.8 g/dL (31.0-37.0); MCV 94.2 fL (80.0-100.0); Mean Platelet Volume 10.7; Platelet Count 348 k/uL (150-450); RBC 3.65 m/uL (3.80-5.40); RDW 13.1 % (11.5-15.5)
[2022-04-30 19:55] LABS: HCT 33.8 % (34.0-46.0); HGB 11.3 gm/dL (11.4-16.0); MCH 31.1 pg (25.0-35.0); MCHC 33.4 g/dL (31.0-37.0); MCV 93.3 fL (80.0-100.0); Mean Platelet Volume 8.8; Platelet Count 390 k/uL (150-450); RBC 3.63 m/uL (3.80-5.40); RDW 12.9 % (11.5-15.5); WBC 15.4 k/uL (3.8-10.6)
[2022-04-30] MEDS: MELATONIN 3 MG TABLET PO PRN (20:07)
[2022-04-30] MEDS: guaiFENesin SYRUP 100MG/5ML 200 MG/10 ML CUP PO PRN (20:07)
[2022-04-30] MEDS: PANTOPRAZOLE 40 MG/10 ML VIAL IVP SCH (20:07)
[2022-04-30] MEDS: ATORVASTATIN 80 MG TAB PO SCH (20:07)
[2022-05-01] MEDS: ALPRAZolam 0.5 MG TAB PO PRN ×3 (00:44→23:43)
[2022-05-01] MEDS: methylPREDNISolone SOD SUCCI 125 MG/2 ML VIAL IV SCH ×4 (03:31→21:55)
[2022-05-01] MEDS: BENZONATATE 100 MG CAP PO PRN (03:31)
[2022-05-01] MEDS: METOPROLOL SUCCINATE (ER) 50 MG TAB.ER.24H PO SCH (08:55)
[2022-05-01] MEDS: ASPIRIN 81 MG PO SCH (08:55)
[2022-05-01] MEDS: amLODIPine 5 MG TAB PO SCH (08:55)
[2022-05-01] MEDS: NICOTINE 21MG/24HR PATCH TRANSDERM SCH (08:55)
[2022-05-01] MEDS: PANTOPRAZOLE 40 MG/10 ML VIAL IVP SCH ×2 (08:56→21:54)
[2022-05-01] MEDS: HEPARIN SODIUM,PORCINE/PF 5,000 UNIT/0.5 ML SYRINGE SQ SCH ×2 (08:56→15:23)
[2022-05-01] MEDS: ALBUTEROL HFA INHALER INHALATION SCH ×4 (09:08→20:50)
[2022-05-01] MEDS: SYMBICORT 160-4.5 MCG INHALER INHALATION SCH ×2 (09:08→20:50)
--- NOTE | 2022-05-01 09:52 | P.PN ---
Subjective Progress Note Date: 05/01/22 57-year-old female who presented to the emergency department on April 24, complaining of shortness of breath. The patient hasn't been feeling well for about 3 days prior to admission. The patient does have a history of underlying COPD, although she's never seen a lung doctor, or had pulmonary function test. She's been smoking for more than 40 years, at one to 2 packs a day according to her . The patient came in with shortness of breath, cough, wheezing, and chest tightness. She was coughing a small amount of phlegm up. It was mostly white. She also had fever, and body aches. The patient was evaluated in emergency room, and did test positive for both respiratory syncytial virus, and coronavirus. In addition, she had elevated troponins, and was started on IV heparin. She has no other significant past medical history, does not see a doctor on a regular basis. Currently, she is on 5 L nasal cannula. She is receiving IV heparin. She was previously on BiPAP, with settings of 10/5 and 50%. In the past, she did see Dr. Mica Michelle. White count 6.8, hemoglobin 12.9, hematocrit 38.3, and platelet count was normal. PTT was 56.3. Sodium 137, potassium 4.7, chlorides 109, CO2 23, BUN 8, and creatinine 0.49. Troponins were 0.115, 0.187, and 0.207. Urine was negative. The patient did test positive for both RSV and coronavirus. The patient's chest x-ray was consistent with COPD. She had hyperlucent lung carrasco, as well as air trapping, flat diaphragms, and a vertically hanging hard. Progress note dated 04/26/2022. The patient is seen today in room 367. The patient is on 4 L of oxygen. She's receiving IV heparin. The patient does have a diagnosis of coronavirus infection. She does have a history of underlying COPD, from years of tobacco use, at 2 packs a day. She apparently has been smoking for 40 years according to her and her . No new labs today other than a PTT of 32.4. Laboratory data from April 25 is reviewed. The patient also tested positive for respiratory syncytial virus as well as coronavirus infection. c 04/27/2022, the patient is still struggling with her breathing. She is bronchospastic and wheezy and she remains on 4 L of O2 nasal cannula. As stated earlier, the patient is on a combination of infection with RSV and Covid 19. She had received Covid 19 vaccination. Currently she is receiving IV Solu- Medrol, IV Remdesivir, and she is also on the Ventolin HFA 2 puffs 4 times a day. She is also on Symbicort 2 puffs twice a day. She is a chronic smoker and she is on a nicotine patch. She is slow to progress at this point in time. She is not utilizing the BiPAP and she is on O2 at 4 L nasal cannula 04/28/2022, the patient is doing better compared to yesterday. Less bronchospastic and wheezy, still on 4 L. A repeat chest x-ray was done and shows no evidence of any consolidation or airspace disease. It is consistent with COPD. She is completing her Covid 19 and RSV treatment. She remains on bronchodilators and systemic steroids. Her blood work was last checked on 04/27/2022. No recent blood work from today. Nevertheless, the chest x-ray is adequate for now. The patient remains on IV Solu-Medrol 60 mg every 6 hours. The patient is on Symbicort and Remdesivir 04/29 2022, I'm seeing the patient for a follow-up. This patient was quite short of breath due to a combination of Covid 19 and RSV infection. She was bronchospastic and wheezy and she was being treated with a combination of b ronchodilators, steroids and she was also on Remdesivir she is completing her course and she is taken her last dose today. The patient overnight became quite short of breath and lethargic. At that point, blood gas was done that showed an acute on chronic respiratory acidosis. The blood gas showed a pH of 7.29 with a pCO2 of 85 and a pO2 of 301 and this was not identified on 100%. At that point, the patient was placed on a BiPAP at a pressure of 10/5 cm of water and she stayed on the BiPAP throughout the night. The patient this morning's an FiO2 of 35%. Pulse ox is 99%. She is obtaining a tidal volume of 400. Respiratory rate is around 24. Minute ventilation is low. I took her off the BiPAP and put her back on oxygen at 2 L and her current pulse ox is 99% pH she seems to be quite comfortable. At times she gets panicky and agitated and restless and for that reason she has Xanax. Her serum sodium level is at 135, bicarbonate of 42 with a BUN of 38 and a creatinine of 0.5. Chest x-ray was done yesterday showed no significant abnormalities. 04/30/2022, the patient is feeling much better. She is less short of breath. Breathing is nonlabored and she is able to speak longer sentences. She is still using the BiPAP on and off during the day and currently she is on oxygen at 2 L nasal cannula. She remains on bronchodilators. She remains on steroids.Most recent most recent blood gas from yesterday showed a pH of 7.52 with a pCO2 57 and pO2 of 52 and this was done on FiO2 of 28%. On today's blood work, serum bicarb is down to 37, sodium is at 138, BUN is 54 with a creatinine of 0.5. The patient remains on DuoNeb nebulized treatments [id number]. The patient is on Symbicort. The patient is on IV Solu-Medrol 60 mg every 6 hours. She has also on nicotine patch. She completed Remdesivir On today's evaluation of 05/01/2022, she continues to improve and the patient is currently on 2 L of O2 nasal cannula. Sitting at the edge of the bed. Breathing comfortably. Breath sounds are still diminished and she needs to work aggressively on her incentive spirometer. No other new complaints otherwise for now. She remains on bronchodilators and steroids.urs. She has also on nicotine patch. She completed Remdesivi Objective - Vital Signs Vital signs: Vital Signs Temp 97.5 F L 05/01/22 04:00 Pulse 97 05/01/22 08:00 Resp 16 05/01/22 08:00 BP 120/82 05/01/22 08:00 Pulse Ox 96 05/01/22 09:12 FiO2 35 04/29/22 15:23 Intake & Output 04/30/22 05/01/22 05/01/22 18:59 06:59 18:59 Intake Total 480 Output Total 600 600 Balance -120 -600 Intake: Oral 480 Output: Urine 600 600 Other: Voiding Method Indwelling Catheter Indwelling Catheter # Bowel Movements 2 - Exam No acute distress, oriented 3. No audible wheezing, use of accessory muscles, or conversational dyspnea. The patient is currently on 2 L of oxygen. HEENT examination is grossly unremarkable. Neck supple. Full range of motion. No adenopathy thyromegaly or neck vein distention. Cardiovascular examination reveals regular rhythm rate. S1-S2 normal. No S3 or S4. No discernible murmur noted. Heart rate 100 bpm. Heart sounds are distant. Lungs reveal inspiratory and expiratory wheezes and rhonchi. No crackles. Breath sounds equal bilaterally but diminished throughout. Slight prolongation noted. Saturations are 95 %. Abdomen soft bowel sounds are heard. No masses or tenderness. Extremities are intact. No cyanosis clubbing or edema. Skin is without rash or lesion. Neurologic examination is brief but nonfocal. - Labs CBC & Chem 7: 04/30/22 19:38 04/30/22 10:17 Labs: Abnormal Lab Results - Last 24 Hours (Table) 04/30/22 04/30/22 04/30/22 Range/Units 10:17 10:17 10:17 WBC 16.0 H (3.8-10.6) k/uL RBC 3.65 L (3.80-5.40) m/uL Hgb (11.4-16.0) gm/dL Hct (34.0-46.0) % VBG pH 7.54 H (7.31-7.41) VBG HCO3 32 H (24-28) mmol/L Chloride 94 L (98-107) mmol/L Carbon Dioxide 37 H (22-30) mmol/L BUN 54 H (7-17) mg/dL Glucose 173 H (74-99) mg/dL POC Glucose (mg/dL) (70-110) mg/dL 04/30/22 04/30/22 04/30/22 Range/Units 11:29 16:30 19:38 WBC 15.4 H (3.8-10.6) k/uL RBC 3.63 L (3.80-5.40) m/uL Hgb 11.3 L (11.4-16.0) gm/dL Hct 33.8 L (34.0-46.0) % VBG pH (7.31-7.41) VBG HCO3 (24-28) mmol/L Chloride (98-107) mmol/L Carbon Dioxide (22-30) mmol/L BUN (7-17) mg/dL Glucose (74-99) mg/dL POC Glucose (mg/dL) 187 H 193 H (70-110) mg/dL Assessment and Plan Plan: Assessment and Plan Acute hypoxemic respiratory failure, secondary to COPD exacerbation, triggered by respiratory syncytial virus, and coronavirus.. The patient developed worsening shortness of breath overnight with acute on chronic hypercapnic respiratory failure requiring BiPAP. She is completing a course of Covid 19 treatment with Remdesivir treatment is completed. The patient is currently off BiPAP and the patient is improving. She is using on and off BiPAP during the day. She has a weaned down to 2 L of oxygen by nasal cannula. No evidence of coronavirus associated pneumonia. Ongoing tobacco use with nicotine addiction. History of migraine cephalgia. Stress urinary incontinence. History of kidney stones. History of anxiety/depression. History of bipolar disorder. Plan Clinically improving and she is slow to progress Continue use of incentive spirometer Oxygen at 2 L nasal cannula. Blood gases were noted Patient had a double infection with RSV and Covid 19 Continue bronchodilators and Symbicort Continue IV Solu-Medrol Continue IV Remdesivir per protocol, and she is completed course of treatment Repeat chest x-ray from today shows COPD without any airspace disease and this was done yesterday Nicotine patch We'll follow Noted the pro calcitonin level has been low. We'll continue to follow.
[2022-05-01 10:49] LABS: African American GFR (CKD) >90 (>60 ml/min/1.73 sqM); Anion Gap 8 mmol/L; Blood Urea Nitrogen 57 mg/dL (7-17); Calcium 9.1 mg/dL (8.4-10.2); Carbon Dioxide 31 mmol/L (22-30); Chloride 99 mmol/L (98-107); Glucose 155 mg/dL (74-99); Non-African American GFR(CKD) 84 (>60 ml/min/1.73 sqM); Sodium 138 mmol/L (137-145)
--- NOTE | 2022-05-01 11:04 | P.PN ---
Subjective Progress Note Date: 05/01/22 Principal diagnosis: Respiratory failure Hospital Course: Patient is a 57-year-old female with a PMH of COPD and tobacco abuse who presents to the emergency room with complaints of shortness of breath and cough. The patient reports that her symptoms started roughly 2 days ago with gradually worsening shortness of breath, cough productive of white and green phlegm, palpitations, and occasional chest pressure. She reported that her symptoms were worse than her prior episodes of COPD exacerbations. Upon arrival in the emergency department on 04/24/22, the patient was found to be hypoxic at SpO2 81% on room air, pulse 122, BP 185/103, respiratory rate 26, and temp 98.8F. Chest x-ray was consistent with COPD with EKG showing sinus tachycardia at 113 bpm. Laboratory evaluation was remarkable for troponin of 0.115, kim virus PCR an RSV positive, glucose 150, pH on VBG 7.25, pCO2 64, WBC count 13.6, and proBNP 203. The case was discussed in detail with the ED physician and patient was admitted under our services with consultation to pulmonology and cardiology at this time. Troponins trended overnight continuing to elevate from 0.115, 0.187 and 0.207. Urinalysis was obtained negative for blood or infection. Pro- calcitonin was negative at 0.08. Patient currently on steroids, bronchodilators, and remdesivir. Also on heparin drip for NSTEMI, now discontinued. Patient was hypercapnic, was briefly on BiPAP. Respiratory function stable. Also having melena, will get Surgery to see her. On IV PPI BID. Subjective: Patient seen and examined at bedside. No acute events overnight. Mentation has improved. Currently on 2 L of oxygen. She denies any abdominal pain, chest pain, nausea, vomiting, diarrhea, constipation, or urinary complaints. Patient does claim that she had episodes of melena, now having dark brown stools. She also has a Cross catheter in place. Pertinent positives and negatives as discussed above, a complete review of systems was performed and all other systems are negative. Vitals Signs Reviewed. General: nontoxic, no distress, appears at stated age Derm: warm, dry Head: atraumatic, normocephalic, symmetric Eyes: EOMI, no lid lag, anicteric sclera Mouth: no lip lesion, mucus membranes moist Cardiovascular: S1S2 reg, no murmur Lungs: Decreased breath sounds bilaterally, no accessory muscle use, supp lemental oxygen Abdominal: soft, nontender to palpation, no guarding, no appreciable organomegaly Ext: no gross muscle atrophy, no edema, no contractures Neuro: CN II-XI grossly intact, no focal neuro deficits Psych: Alert, oriented, appropriate affect Assessment and Plan: Acute hypercapnic and hypoxic respiratory failure secondary to acute COPD exacerbation with COVID-19 and RSV infections COPD with acute exacerbation secondary to above COVID-19 pneumonia RSV infection Leukocytosis - likely steroid-induced Nicotine dependence -Continue steroids, bronchodilators -Remdesivir (completed) -Nicotine patch provided and patient was counseled on smoking cessation. -Pulmonary following, appreciate further recommendations. Possible acute upper GI bleed Melena -IV PPI Surgery consult -Hemoglobin stable metabolic alkalosis - improving -Given Diamox per pulmonary once Acute urinary retention -Has a Cross catheter in place -We'll consider discontinuing, and a voiding trial Non-ST elevation KS, likely type II secondary to prolonged hypoxia Small pericardial effusion -Heparin drip now discontinued -Patient to continue aspirin, atorvastatin, and metoprolol. -Echocardiogram completed revealing EF of 50-55% with small pericardial effusion without reports of any cardiac tamponade physiology. -Patient to remain on telemetry monitoring. Hypertensive urgency -BP now stable -Patient currently on metoprolol and amlodipine DVT ppx: Subcu heparin Code status: Full code Anticipated discharge place: Home Anticipated discharge time: pending Clinical course Objective - Vital Signs Vital signs: Vital Signs Temp 97.5 F L 05/01/22 04:00 Pulse 97 05/01/22 08:00 Resp 16 05/01/22 08:00 BP 120/82 05/01/22 08:00 Pulse Ox 96 05/01/22 09:12 FiO2 35 04/29/22 15:23 Intake & Output 04/30/22 05/01/22 05/01/22 18:59 06:59 18:59 Intake Total 480 Output Total 600 600 Balance -120 -600 Intake: Oral 480 Output: Urine 600 600 Other: Voiding Method Indwelling Catheter Indwelling Catheter Indwelling Catheter # Bowel Movements 2 1 - Labs CBC & Chem 7: 04/30/22 19:38 05/01/22 10:17 Labs: Abnormal Lab Results - Last 24 Hours (Table) 04/30/22 04/30/22 04/30/22 Range/Units 10:17 10:17 11:29 WBC 16.0 H (3.8-10.6) k/uL RBC 3.65 L (3.80-5.40) m/uL Hgb (11.4-16.0) gm/dL Hct (34.0-46.0) % Chloride 94 L (98-107) mmol/L Carbon Dioxide 37 H (22-30) mmol/L BUN 54 H (7-17) mg/dL Glucose 173 H (74-99) mg/dL POC Glucose (mg/dL) 187 H (70-110) mg/dL 04/30/22 04/30/22 05/01/22 Range/Units 16:30 19:38 10:17 WBC 15.4 H (3.8-10.6) k/uL RBC 3.63 L (3.80-5.40) m/uL Hgb 11.3 L (11.4-16.0) gm/dL Hct 33.8 L (34.0-46.0) % Chloride (98-107) mmol/L Carbon Dioxide 31 H (22-30) mmol/L BUN 57 H (7-17) mg/dL Glucose 155 H (74-99) mg/dL POC Glucose (mg/dL) 193 H (70-110) mg/dL
[2022-05-01 11:14] LABS: HCT 32.4 % (34.0-46.0); HGB 11.2 gm/dL (11.4-16.0); MCHC 34.4 g/dL (31.0-37.0); Platelet Count 310 k/uL (150-450); RBC 3.49 m/uL (3.80-5.40); RDW 12.9 % (11.5-15.5)
--- NOTE | 2022-05-01 11:42 | P.GSCN ---
History of Present Illness Consult date: 05/01/22 Reason for Consult: GI bleed History of present illness: 57-year-old female hospitalized with respiratory failure. Patient with COPD and history of tobacco use. Patient was found to be cold. And RSV positive supposedly. Patient has had gradual improvement in her pulmonary status. She was on BiPAP for a while. Apparently when she was at home she had a bloody stool. Yesterday she began having some black colored stools although the pat ient states this morning she had 2 stools that were brown in color. Hemoglobin has been stable. Hemodynamically she is stable. We were consulted for GI bleed. Patient says she had her last colonoscopy many many years ago when she was in [place]. She said she also had a bleeding ulcer at that time. Review of Systems The patient denies any acute changes in vision or hearing, no dysphagia or odynophagia, no chest pain or shortness of breath, no dysuria or hematuria, no headache, no runny nose, no unexplained weight loss Past Medical History Past Medical History: COPD Additional Past Medical History / Comment(s): STRESS INCONT OF URINE, MIGRAINES, History of Any Multi-Drug Resistant Organisms: None Reported Past Surgical History: No Surgical Hx Reported Additional Past Surgical History / Comment(s): ECTOPIC , KIDNEY STONES REMOVED. Past Anesthesia/Blood Transfusion Reactions: No Reported Reaction Past Psychological History: Anxiety, Bipolar, Depression Smoking Status: Current every day smoker Past Alcohol Use History: Occasional Past Drug Use History: None Reported - Past Family History Mother Family Medical History: Cancer Additional Family Medical History / Comment(s): LUNG CANCER Father Family Medical History: Cancer Additional Family Medical History / Comment(s): Pancreatic cancer Medications and Allergies Home Medications Medication Instructions Recorded Confirmed Type No Known Home Medications 04/24/22 04/24/22 History Allergies Allergy/AdvReac Type Severity Reaction Status Date / Time No Known Allergies Allergy Verified 04/24/22 19:56 Surgical - Exam Vital Signs Temp Pulse Resp BP Pulse Ox 98.8 F 122 H 19 185/103 81 L 04/24/22 18:33 04/24/22 18:33 04/24/22 18:33 04/24/22 18:33 04/24/22 18:33 Physical exam: General: 57-year-old female appears older than stated age, mildly cachectic appearing HEENT: Normocephalic, sclerae nonicteric Abdomen: Nontender, nondistended Extremities: No edema Neuro: Alert and oriented Results - Labs 05/01/22 10:17 05/01/22 10:17 Abnormal Lab Results - Last 24 Hours (Table) 04/30/22 04/30/22 04/30/22 Range/Units 10:17 16:30 19:38 WBC 16.0 H 15.4 H (3.8-10.6) k/uL RBC 3.65 L 3.63 L (3.80-5.40) m/uL Hgb 11.3 L (11.4-16.0) gm/dL Hct 33.8 L (34.0-46.0) % Carbon Dioxide (22-30) mmol/L BUN (7-17) mg/dL Glucose (74-99) mg/dL POC Glucose (mg/dL) 193 H (70-110) mg/dL 05/01/22 05/01/22 Range/Units 10:17 10:17 WBC 13.2 H (3.8-10.6) k/uL RBC 3.49 L (3.80-5.40) m/uL Hgb 11.2 L (11.4-16.0) gm/dL Hct 32.4 L (34.0-46.0) % Carbon Dioxide 31 H (22-30) mmol/L BUN 57 H (7-17) mg/dL Glucose 155 H (74-99) mg/dL POC Glucose (mg/dL) (70-110) mg/dL Diabetes panel 05/01/22 Range/Units 10:17 Sodium 138 (137-145) mmol/L Potassium 4.0 (3.5-5.1) mmol/L Chloride 99 (98-107) mmol/L Carbon Dioxide 31 H (22-30) mmol/L BUN 57 H (7-17) mg/dL Creatinine 0.78 (0.52-1.04) mg/dL Glucose 155 H (74-99) mg/dL Calcium 9.1 (8.4-10.2) mg/dL Calcium panel 05/01/22 Range/Units 10:17 Calcium 9.1 (8.4-10.2) mg/dL Pituitary panel 05/01/22 Range/Units 10:17 Sodium 138 (137-145) mmol/L Potassium 4.0 (3.5-5.1) mmol/L Chloride 99 (98-107) mmol/L Carbon Dioxide 31 H (22-30) mmol/L BUN 57 H (7-17) mg/dL Creatinine 0.78 (0.52-1.04) mg/dL Glucose 155 H (74-99) mg/dL Calcium 9.1 (8.4-10.2) mg/dL Adrenal panel 05/01/22 Range/Units 10:17 Sodium 138 (137-145) mmol/L Potassium 4.0 (3.5-5.1) mmol/L Chloride 99 (98-107) mmol/L Carbon Dioxide 31 H (22-30) mmol/L BUN 57 H (7-17) mg/dL Creatinine 0.78 (0.52-1.04) mg/dL Glucose 155 H (74-99) mg/dL Calcium 9.1 (8.4-10.2) mg/dL Assessment and Plan (1) GI bleed Narrative/Plan: 57-year-old female with melanotic stools and rectal bleeding at home. Discuss case with pulmonary who does not believe the patient is a candidate for endoscopy at this time unless more clinically significant bleeding is suspected. We'll plan upper and lower endoscopy as outpatient. Resume full liquid diet. Continue antiacid therapy. Will follow. Current Visit: Yes Status: Acute Code(s): K92.2 - GASTROINTESTINAL HEMORRHAGE, UNSPECIFIED SNOMED Code(s): 77454502
[2022-05-01 12:12] LABS: Band Neutrophils % 3 %; Lymphocytes # (M) 1.18 k/uL (1.0-4.8); Monocytes # (M) 1.44 k/uL (0-1.0); Myelocytes # (M) 0.13 k/uL (0); Myelocytes % 1 %; Neutrophils % (M) 76 %; Nucleated Red Blood Cells 1 /100 WBC (0-0); Total Cells Counted 100; WBC 13.1 k/uL (3.8-10.6)
[2022-05-01] MEDS: ATORVASTATIN 80 MG TAB PO SCH (21:55)
[2022-05-01 22:47] LABS: Glucose,Whole Blood 156 mg/dL (70-110)
[2022-05-02 01:17] VITALS: RESP 18
[2022-05-02] MEDS: HEPARIN SODIUM,PORCINE/PF 5,000 UNIT/0.5 ML SYRINGE SQ SCH ×2 (06:03→09:01)
[2022-05-02] MEDS: methylPREDNISolone SOD SUCCI 125 MG/2 ML VIAL IV SCH ×2 (06:03→09:02)
[2022-05-02 07:41] LABS: Glucose,Whole Blood 161 mg/dL (70-110)
[2022-05-02] MEDS: ALBUTEROL HFA INHALER INHALATION SCH ×2 (07:51→11:58)
[2022-05-02] MEDS: SYMBICORT 160-4.5 MCG INHALER INHALATION SCH (07:51)
[2022-05-02] MEDS: PANTOPRAZOLE 40 MG/10 ML VIAL IVP SCH (09:02)
[2022-05-02] MEDS: ASPIRIN 81 MG PO SCH (09:03)
[2022-05-02] MEDS: amLODIPine 5 MG TAB PO SCH (09:03)
[2022-05-02] MEDS: METOPROLOL SUCCINATE (ER) 50 MG TAB.ER.24H PO SCH (09:03)
[2022-05-02] MEDS: NICOTINE 21MG/24HR PATCH TRANSDERM SCH (09:05)
[2022-05-02 11:00] VITALS: TEMP 98
[2022-05-02 11:12] LABS: Glucose,Whole Blood 120 mg/dL (70-110)
[2022-05-02 11:59] VITALS: BP 121/78; PULSE 92
--- NOTE | 2022-05-02 12:38 | P.PN ---
Subjective Progress Note Date: 05/02/22 57-year-old female who presented to the emergency department on April 24, complaining of shortness of breath. The patient hasn't been feeling well for about 3 days prior to admission. The patient does have a history of underlying COPD, although she's never seen a lung doctor, or had pulmonary function test. She's been smoking for more than 40 years, at one to 2 packs a day according to her . The patient came in with shortness of breath, cough, wheezing, and chest tightness. She was coughing a small amount of phlegm up. It was mostly white. She also had fever, and body aches. The patient was evaluated in emergency room, and did test positive for both respiratory syncytial virus, and coronavirus. In addition, she had elevated troponins, and was started on IV heparin. She has no other significant past medical history, does not see a doctor on a regular basis. Currently, she is on 5 L nasal cannula. She is receiving IV heparin. She was previously on BiPAP, with settings of 10/5 and 50%. In the past, she did see Dr. Mica Michelle. White count 6.8, hemoglobin 12.9, hematocrit 38.3, and platelet count was normal. PTT was 56.3. Sodium 137, potassium 4.7, chlorides 109, CO2 23, BUN 8, and creatinine 0.49. Troponins were 0.115, 0.187, and 0.207. Urine was negative. The patient did test positive for both RSV and coronavirus. The patient's chest x-ray was consistent with COPD. She had hyperlucent lung carrasco, as well as air trapping, flat diaphragms, and a vertically hanging hard. Progress note dated 04/26/2022. The patient is seen today in room 367. The patient is on 4 L of oxygen. She's receiving IV heparin. The patient does have a diagnosis of coronavirus infection. She does have a history of underlying COPD, from years of tobacco use, at 2 packs a day. She apparently has been smoking for 40 years according to her and her . No new labs today other than a PTT of 32.4. Laboratory data from April 25 is reviewed. The patient also tested positive for respiratory syncytial virus as well as coronavirus infection. c 04/27/2022, the patient is still struggling with her breathing. She is bronchospastic and wheezy and she remains on 4 L of O2 nasal cannula. As stated earlier, the patient is on a combination of infection with RSV and Covid 19. She had received Covid 19 vaccination. Currently she is receiving IV Solu- Medrol, IV Remdesivir, and she is also on the Ventolin HFA 2 puffs 4 times a day. She is also on Symbicort 2 puffs twice a day. She is a chronic smoker and she is on a nicotine patch. She is slow to progress at this point in time. She is not utilizing the BiPAP and she is on O2 at 4 L nasal cannula 04/28/2022, the patient is doing better compared to yesterday. Less bronchospastic and wheezy, still on 4 L. A repeat chest x-ray was done and shows no evidence of any consolidation or airspace disease. It is consistent with COPD. She is completing her Covid 19 and RSV treatment. She remains on bronchodilators and systemic steroids. Her blood work was last checked on 04/27/2022. No recent blood work from today. Nevertheless, the chest x-ray is adequate for now. The patient remains on IV Solu-Medrol 60 mg every 6 hours. The patient is on Symbicort and Remdesivir 04/29 2022, I'm seeing the patient for a follow-up. This patient was quite short of breath due to a combination of Covid 19 and RSV infection. She was bronchospastic and wheezy and she was being treated with a combination of bro nchodilators, steroids and she was also on Remdesivir she is completing her course and she is taken her last dose today. The patient overnight became quite short of breath and lethargic. At that point, blood gas was done that showed an acute on chronic respiratory acidosis. The blood gas showed a pH of 7.29 with a pCO2 of 85 and a pO2 of 301 and this was not identified on 100%. At that point, the patient was placed on a BiPAP at a pressure of 10/5 cm of water and she stayed on the BiPAP throughout the night. The patient this morning's an FiO2 of 35%. Pulse ox is 99%. She is obtaining a tidal volume of 400. Respiratory rate is around 24. Minute ventilation is low. I took her off the BiPAP and put her back on oxygen at 2 L and her current pulse ox is 99% pH she seems to be quite comfortable. At times she gets panicky and agitated and restless and for that reason she has Xanax. Her serum sodium level is at 135, bicarbonate of 42 with a BUN of 38 and a creatinine of 0.5. Chest x-ray was done yesterday showed no significant abnormalities. 04/30/2022, the patient is feeling much better. She is less short of breath. Breathing is nonlabored and she is able to speak longer sentences. She is still using the BiPAP on and off during the day and currently she is on oxygen at 2 L nasal cannula. She remains on bronchodilators. She remains on steroids.Most recent most recent blood gas from yesterday showed a pH of 7.52 with a pCO2 57 and pO2 of 52 and this was done on FiO2 of 28%. On today's blood work, serum bicarb is down to 37, sodium is at 138, BUN is 54 with a creatinine of 0.5. The patient remains on DuoNeb nebulized treatments [id number]. The patient is on Symbicort. The patient is on IV Solu-Medrol 60 mg every 6 hours. She has also on nicotine patch. She completed Remdesivir On today's evaluation of 05/01/2022, she continues to improve and the patient is currently on 2 L of O2 nasal cannula. Sitting at the edge of the bed. Breathing comfortably. Breath sounds are still diminished and she needs to work aggressively on her incentive spirometer. No other new complaints otherwise for now. She remains on bronchodilators and steroids.urs. She has also on nicotine patch. She completed Remdesivir The patient is seen today 05/02/2022 in follow-up on the selective care unit. She is currently sitting up in bed. Awake and alert in no acute distress. She denies any worsening shortness of breath, cough or congestion. She is quite anxious to go home. He is currently maintaining O2 saturations in the 90s on 2 L nasal cannula. She does desaturate to 88% on room air with activity. Blood glucose 120. She remains on Symbicort, albuterol, and prednisone taper. For DVT Prophylaxis. Completed a Course of Remdesivir. NicoDerm Patch is in Place. Objective - Vital Signs Vital signs: Vital Signs Temp 98.0 F 05/02/22 08:00 Pulse 92 05/02/22 11:58 Resp 18 05/02/22 08:00 BP 121/78 05/02/22 11:58 Pulse Ox 92 L 05/02/22 11:59 FiO2 35 04/29/22 15:23 Intake & Output 05/01/22 05/02/22 05/02/22 18:59 06:59 18:59 Intake Total 476 Output Total 400 240 Balance 76 -240 Intake: Oral 476 Output: Urine 400 240 Other: Voiding Method Indwelling Catheter Indwelling Catheter Indwelling Catheter # Voids 1 # Bowel Movements 1 - Exam GENERAL EXAM: Alert, 57-year-old female, appears older than stated age, on 2 L is cannula, comfortable in no apparent distress. HEAD: Normocephalic. EYES: Normal reaction of pupils, equal size. NOSE: Clear with pink turbinates. THROAT: No erythema or exudates. NECK: No masses, no JVD. CHEST: No chest wall deformity. LUNGS: Equal air entry with bilateral end expiratory wheeze, few scattered rhonchi. CVS: S1 and S2 normal with no audible murmur, regular rhythm. ABDOMEN: No hepatosplenomegaly, normal bowel sounds, no guarding or rigidity. SPINE: No scoliosis or deformity SKIN: No rashes CENTRAL NERVOUS SYSTEM: No focal deficits, tone is normal in all 4 extremities. EXTREMITIES: There is no peripheral edema. No clubbing, no cyanosis. Peripheral pulses are intact. - Labs CBC & Chem 7: 05/01/22 10:17 05/01/22 10:17 Labs: Abnormal Lab Results - Last 24 Hours (Table) 05/01/22 05/02/22 05/02/22 Range/Units 22:45 07:39 11:10 POC Glucose (mg/dL) 156 H 161 H 120 H (70-110) mg/dL Assessment and Plan Assessment: Acute hypoxemic respiratory failure, secondary to COPD exacerbation, triggered by respiratory syncytial virus, and coronavirus. She completed Remdesivir. The patient is currently off BiPAP and the patient is improving. She has a weaned down to 2 L of oxygen by nasal cannula. No evidence of coronavirus associated pneumonia. Ongoing tobacco use with nicotine addiction. History of migraine cephalgia. Stress urinary incontinence. History of kidney stones. History of anxiety/depression. History of bipolar disorder. Plan: The patient was seen and evaluated Currently stable and on 2 L nasal cannula May need home oxygen She is quite adamant about going home today Continued on Symbicort and albuterol Complete a prednisone taper starting at 40 mg daily for 4 days Educated regarding the importance of complete smoking cessation NicoDerm patch in place Follow-up in the office in 1-2 weeks' I have personally seen and examined the patient, performed the documentation and the assessment and plan as written. Number of minutes spent on the visit: 10.
--- NOTE | 2022-05-02 12:39 | P.DS ---
Providers Date of admission: 04/24/22 20:04 Expected date of discharge: 05/02/22 Attending physician: Etienne Simon MD Consults: 04/24/22 20:02 Consult Physician Routine Consulting Provider: Joe Martinez Consult Reason/Comments: copd exacerbation on BIPAP, hypoxic respiratory failure Do you want consulting provider notified?: Yes 04/25/22 02:32 Consult Physician Urgent Consulting Provider: Toni Pahtak Consult Reason/Comments: NSTEMI Do you want consulting provider notified?: Yes 04/30/22 17:54 Consult Physician Routine Consulting Provider: Gael Hart Consult Reason/Comments: positive occult stool, black tarry stools Do you want consulting provider notified?: Yes Primary care physician: Stated None Hospital Course: Discharge Diagnosis: Acute hypercapnic and hypoxic respiratory failure COPD with acute exacerbation COVID-19 pneumonia RSV infection Leukocytosis Nicotine dependence Possible acute upper GI bleed Melena metabolic alkalosis Acute urinary retention Non-ST elevation TX Small pericardial effusion Hypertensive urgency Hospital Course: 57-year-old female with a PMH of COPD and tobacco abuse who presents to the emergency room with complaints of shortness of breath and cough. Upon arrival in the emergency department on 04/24/22, the patient was found to be hypoxic at SpO2 81% on room air, pulse 122, BP 185/103, respiratory rate 26, and temp 98.8F. Chest x-ray was consistent with COPD with EKG showing sinus tachycardia at 113 bpm. Laboratory evaluation was remarkable for troponin of 0.115, kim virus PCR and RSV positive, glucose 150, pH on VBG 7.25, pCO2 64, WBC count 13.6, and proBNP 203. Troponins trended overnight continuing to elevate from 0.115, 0.187 and 0.207. Urinalysis was negative. Pro-calcitonin was negative at 0.08. Patient was initially started on heparin drip for non-ST elevation TX, likely in the setting of hypoxia and demand ischemia. Cardiology was consulted. Patient was transitioned to aspirin and statin. Echocardiogram showed LVEF 50- 55% with small pericardial effusion without any cardiac tamponade. For her hypertension, patient was started on amlodipine and metoprolol. In terms of her respiratory function, patient was given steroids, bronchodilators, and remdesivir. Respiratory function stable at discharge. She is Also having melena at home and while being hospitalized. Hemoglobin stable. She was consulted. Patient will need outpatient follow-up, oral PPI. Patient to be discharged with Medrol Dosepak, and bronchodilators with close follow-up with pulmonology for further PFTs. Patient seen and examined at bedside. Vital signs reviewed and stable. General: nontoxic, no distress, appears at stated age Derm: warm, dry Head: atraumatic, normocephalic, symmetric Eyes: EOMI, no lid lag, anicteric sclera Mouth: no lip lesion, mucus membranes moist Cardiovascular: S1S2 reg, no murmur Lungs: Decreased breath sounds bilaterally, no wheezing, no accessory muscle use Abdominal: soft, nontender to palpation, no guarding, no appreciable organomegaly Ext: no gross muscle atrophy, no edema, no contractures Neuro: CN II-XI grossly intact, no focal neuro deficits Psych: Alert, oriented, appropriate affect A total of 45 minutes of time were spent preparing this complex discharge summary. Patient was discharged on 05/02/22 at 12:27. Patient Condition at Discharge: Stable Plan - Discharge Summary Discharge Rx Participant: No New Discharge Prescriptions: New Aspirin 81 mg PO DAILY #30 tab amLODIPine [Norvasc] 5 mg PO DAILY #30 tab Budesonide-Formot 160-4.5 Mcg [Symbicort 160-4.5 Mcg Inhaler] 2 puff INHALATION RT-BID #1 each Benzonatate [Tessalon Perles] 200 mg PO TID PRN #60 cap PRN Reason: Cough Metoprolol Succinate (ER) [Toprol XL] 50 mg PO DAILY #30 tab Pantoprazole [Protonix] 40 mg PO BID #60 tab Atorvastatin [Lipitor] 80 mg PO HS #30 tab methylPREDNISolone Dose Pack [Medrol Dose Pack] 4 mg PO DIRECTED #1 packet Melatonin 3 mg PO HS PRN #30 tab PRN Reason: Insomnia Albuterol Inhaler [Ventolin Hfa Inhaler] 2 puff INHALATION RT-QID #1 each Discharge Medication List Albuterol Inhaler [Ventolin Hfa Inhaler] 2 puff INHALATION RT-QID #1 each 05/02/22 [Rx] Aspirin 81 mg PO DAILY #30 tab 05/02/22 [Rx] Atorvastatin [Lipitor] 80 mg PO HS #30 tab 05/02/22 [Rx] Benzonatate [Tessalon Perles] 200 mg PO TID PRN #60 cap 05/02/22 [Rx] Budesonide-Formot 160-4.5 Mcg [Symbicort 160-4.5 Mcg Inhaler] 2 puff INHALATION RT-BID #1 each 05/02/22 [Rx] Melatonin 3 mg PO HS PRN #30 tab 05/02/22 [Rx] Metoprolol Succinate (ER) [Toprol XL] 50 mg PO DAILY #30 tab 05/02/22 [Rx] Pantoprazole [Protonix] 40 mg PO BID #60 tab 05/02/22 [Rx] amLODIPine [Norvasc] 5 mg PO DAILY #30 tab 05/02/22 [Rx] methylPREDNISolone Dose Pack [Medrol Dose Pack] 4 mg PO DIRECTED #1 packet 05/02/22 [Rx] Follow up Appointment(s)/Referral(s): Toni Pathak MD [STAFF PHYSICIAN] - 2 Weeks Katina Arteaga MD [STAFF PHYSICIAN] - 1 Week None,Stated [Primary Care Provider] - 1-2 days Edna Valdivia MD [STAFF PHYSICIAN] - 1 Week Patient Instructions/Handouts: Respiratory Syncytial Virus (DC), Gastrointestinal Bleeding (DC), COPD (Chronic Obstructive Pulmonary Disease) (DC), COVID-19 (Coronavirus Disease 2019) (DC) Discharge Disposition: HOME SELF-CARE
--- NOTE | 2022-05-02 13:02 | P.PN ---
Subjective Progress Note Date: 05/02/22 CHIEF COMPLAINT: GI bleed HISTORY OF PRESENT ILLNESS: Surgical service following regards to GI bleed. Jadon jair reports that she has had no further bloody stools or black stools. She denies any abdominal pain. She's tolerated diet. She is scheduled for discharge today. Last hemoglobin 11.2 PHYSICAL EXAM: VITAL SIGNS: Reviewed. GENERAL: Well-developed in no acute distress. HEENT: No sclera icterus. Extraocular movements grossly intact. Moist buccal mucosa. Head is atraumatic, normocephalic. ABDOMEN: Soft. Nondistended. Nontender. NEUROLOGIC: Alert and oriented. Cranial nerves II through XII grossly intact. ASSESSMENT: 1. Acute GI bleed with black stools 2. Respiratory failure with RSV and Covid PLAN: -Recommend EGD and colonoscopy outpatient -Continue PPI -Patient can be discharged from surgical standpoint Physician Tongue Carrier note has been reviewed by physician. Signing provider agrees with the documented findings, assessment, and plan of care. I have personally seen and examined the patient, reviewed the STEEL POURER /PAs history, exam and MDM and agree with the assessment and plan as written. Based on total visit time, I have performed more than 50% of the visit. As above: Patient doing well today. Stable for discharge from our point of view. Outpatient upper and lower endoscopy planned. Objective - Vital Signs Vital signs: Vital Signs Temp 98.0 F 05/02/22 08:00 Pulse 92 05/02/22 11:58 Resp 18 05/02/22 08:00 BP 121/78 05/02/22 11:58 Pulse Ox 92 L 05/02/22 11:59 FiO2 35 04/29/22 15:23 Intake & Output 05/01/22 05/02/22 05/02/22 18:59 06:59 18:59 Intake Total 476 Output Total 400 240 Balance 76 -240 Intake: Oral 476 Output: Urine 400 240 Other: Voiding Method Indwelling Catheter Indwelling Catheter Indwelling Catheter # Voids 1 # Bowel Movements 1 - Labs CBC & Chem 7: 05/01/22 10:17 05/01/22 10:17 Labs: Abnormal Lab Results - Last 24 Hours (Table) 05/01/22 05/02/22 05/02/22 Range/Units 22:45 07:39 11:10 POC Glucose (mg/dL) 156 H 161 H 120 H (70-110) mg/dL
[2022-05-03] MEDS ORDERED: predniSONE 20 MG TAB PO SCH (09:00)
--- NOTE | 2022-05-06 11:34 | CDI ---
Documentation Clarification Form Date: 05/06/2022 11:24:23 AM From: Dianna Tim Admit Date: 04/24/2022 8:04:00 PM Patient Name: Evelyn Quiroz Visit Number: [id number] Discharge Date: 05/02/2022 2:50:00 PM ATTENTION: The Clinical Documentation Specialists (CDI) and [facility] Coding Staff appreciate your assistance in clarifying documentation. Please respond to the clarification below the line at the bottom and electronically sign. The CDI & [facility] Coding staff will review the response and follow-up if needed. Please note: Queries are made part of the Legal Health Record. If you have any questions, please contact the author of this message via ITS. Dr. Etienne Simon Conflicting documentation has been found in the medical record. As attending physician, please provide clarification. Per [facility] COVID 19 pneumonia Per pulmonary consult and PN 05/02 No evidence of coronovirus pneumonia History/Risk Factors: RSV and positive COVID, COPD exacerbation, respiratory failure Clinical Indicators: CXR COPD Treatment: Remdesivir BIPAP Please clarify which diagnosis is most appropriate: [ ] COVID 19 pneumonia [ ] No evidence of coronavirus associated pneumonia [ ] Other (please specify) [ ] Unable to determine MTDD
== END 2022-05-02 14:50 | disposition home or self-care (01) | DRG 177 ==
LOC: EC 18:31 → 3SCARD 20:04
PROVIDERS: ADMIT Internal Medicine; ATTEND Internal Medicine
PROC: XW043E5 Introduction of Remdesivir Anti-infective into Central Vein, Percutaneous Approach, New Technology Group 5 (ICD-10-PCS; principal; 2022-04-25)
PROC: 05HY33Z Insertion of Infusion Device into Upper Vein, Percutaneous Approach (ICD-10-PCS; 2022-04-28)
PROC: 5A09357 Assistance with Respiratory Ventilation, Less than 24 Consecutive Hours, Continuous Positive Airway Pressure (ICD-10-PCS; 2022-04-28 20:35)
DX: U07.1 COVID-19 (principal); I21.A1 Myocardial infarction type 2; J96.21 Acute and chronic respiratory failure with hypoxia; J96.22 Acute and chronic respiratory failure with hypercapnia; J12.82 Pneumonia due to coronavirus disease 2019; I31.39 Other pericardial effusion (noninflammatory); J44.1 Chronic obstructive pulmonary disease with (acute) exacerbation; E87.3 Alkalosis; K92.1 Melena; I10 Essential (primary) hypertension; I16.0 Hypertensive urgency; B97.4 Respiratory syncytial virus as the cause of diseases classified elsewhere; E86.0 Dehydration; N39.3 Stress incontinence (female) (male); T38.0X5A Adverse effect of glucocorticoids and synthetic analogues, initial encounter; Z79.51 Long term (current) use of inhaled steroids; Z79.899 Other long term (current) drug therapy; Z87.442 Personal history of urinary calculi; Z71.6 Tobacco abuse counseling; F17.210 Nicotine dependence, cigarettes, uncomplicated; R33.9 Retention of urine, unspecified; F31.9 Bipolar disorder, unspecified; F41.9 Anxiety disorder, unspecified; Z87.11 Personal history of peptic ulcer disease
CPT/HCPCS: 36410; 36415; 36600; 71045; 76937; 80048; 80053; 81003; 82272; 82803; 82805; 83605; 83615; 83735; 83880; 84145; 84484; 85025; 85027; 85610; 85730; 86140; 87636; 93005; 93306; 94640; 94660; 94760; 96361; 96365; 96366; 96367; 96375; 96376; 99291